=== PATIENT | female | born 1945 | race Hispanic/Latino ===

== ENCOUNTER → 2017-05-31 | Outpatient (CLI) | payer MEDICARE ==
[~2017-05-31] MED LIST: REGADENOSON 0.4 MG/5 ML PF SYG IVP SCH
== END | disposition home or self-care (01) ==
LOC: SHCH 08:36
PROVIDERS: ATTEND Internal Medicine Cardiovascular Disease
DX: E11.40 Type 2 diabetes mellitus with diabetic neuropathy, unspecified (principal); R94.31 Abnormal electrocardiogram [ECG] [EKG]
CPT/HCPCS: 78452; 93017; 96374; A9500 ×2; J2785

== ENCOUNTER 2018-03-09 18:25 | Emergency (ER) | payer MEDICARE ==
[2018-03-09] MEDS ORDERED: BENZOCAINE/LANOLIN/ALOE VERA 60 ML AEROSOL TP ONE (19:13)
[2018-03-09] MEDS ORDERED: OCTYL 2-CYANOACRYLATE 1 EACH TP ONE (19:13)
[2018-03-09] MEDS ORDERED: TETANUS/DIPHTHERIA TOXOID [ADULT] 0.5 ML VIAL IM ONE (19:21)
== END 2018-03-09 21:08 | disposition home or self-care (01) ==
LOC: EDH 18:25
DX: S81.812A Laceration without foreign body, left lower leg, initial encounter (principal); I10 Essential (primary) hypertension; E78.5 Hyperlipidemia, unspecified; E07.9 Disorder of thyroid, unspecified; I25.10 Atherosclerotic heart disease of native coronary artery without angina pectoris; K21.9 Gastro-esophageal reflux disease without esophagitis; Z91.041 Radiographic dye allergy status; Z88.8 Allergy status to other drugs, medicaments and biological substances; Z90.49 Acquired absence of other specified parts of digestive tract; Z72.0 Tobacco use; W22.8XXA Striking against or struck by other objects, initial encounter; Y93.89 Activity, other specified; Y92.098 Other place in other non-institutional residence as the place of occurrence of the external cause; Y99.8 Other external cause status
CPT/HCPCS: 12031; 90471; 90714

== ENCOUNTER 2019-01-24 15:42 | Observation (INO) | payer MEDICARE ==
[~2019-01-24] VITALS: Ht 165.1 cm; Wt 83.6 kg
[2019-01-24] MEDS ORDERED: ASPIRIN 325 MG TABLET ONE (15:52)
[2019-01-24 15:57] LABS: BASOPHILS % (AUTO) 0.7 % (0.0-5.0); EOSINOPHILS % (AUTO) 1.1 % (0.0-8.0); HEMATOCRIT 37.9 % (36-48); LYMPHOCYTES % (AUTO) 24.6 % (21.0-51.0); MEAN CORPUSCULAR HEMOGLOBIN 29.4 pg (27.0-33.0); MEAN CORPUSCULAR HGB CONC 33.7 g/dL (32.0-36.0); MEAN CORPUSCULAR VOLUME 87.1 fL (79-99); MONOCYTES % (AUTO) 5.8 % (3.0-13.0); NEUTROPHILS % (AUTO) 67.8 % (40.0-77.0); PLATELET COUNT (AUTO) 210 K/uL (130-400); RED BLOOD CELL COUNT(AUTO) 4.36 MIL/uL (4.00-5.50); RED CELL DISTRIBUTION WIDTH 15.8 % (11.0-15.5); WHITE BLOOD COUNT (AUTO) 11.6 K/uL (4.8-10.8)
[2019-01-24 16:06] LABS: CREATININE 1.3 mg/dL (0.5-1.5); POTASSIUM 3.7 mmol/L (3.5-5.1)
[2019-01-24 16:09] LABS: INR 0.89 (0.85-1.15); PARTIAL THROMBOPLASTIN TIME 34.1 SEC (26.3-35.5); PROTHROMBIN TIME 9.4 SEC (9.6-11.6)
[2019-01-24 16:16] LABS: ALBUMIN 3.7 g/dL (3.5-5.0); BILIRUBIN,TOTAL 0.8 mg/dL (0.2-1.0); TOTAL PROTEIN, SERUM 6.9 g/dL (6.0-8.3)
[2019-01-24] MEDS ORDERED: NITROGLYCERIN 1GM/1 INCH PACKET TD ONE (16:19)
[2019-01-24] MEDS ORDERED: ENOXAPARIN SODIUM 40 MG/0.4 ML SYRINGE SQ SCH (17:15)
[2019-01-24] MEDS ORDERED: PHARMACY COMMUNICATION MISC SCH (17:15)
--- NOTE | 2019-01-24 18:00 | NUR ---
Patient arrived to room from ED. Patient alert and oriented x3. IV patent to RAC. History obtained from patient/son. Medications reconciled. Bed placed to lowest position. Call light placed within reach. Patient instructed to call nurse if getting up. Patient in no distress. Denies chest pain or SOB at this time.
[2019-01-24 18:06] VITALS: BP 136/78
[2019-01-24] MEDS ORDERED: LOSA1TAB54 PO (18:25)
[2019-01-24] MEDS ORDERED: ROSU20TA31 PO (18:25)
[2019-01-24] MEDS ORDERED: OMEP40CA37 PO (18:30)
[2019-01-24] MEDS ORDERED: IBUP-2071 PO (18:30)
[2019-01-24] MEDS ORDERED: GLIP1TAB6 PO (18:30)
[2019-01-24] MEDS ORDERED: LEVO75TA10 PO (18:30)
[2019-01-24] MEDS ORDERED: CLON1TAB12 PO (18:30)
[2019-01-24] MEDS ORDERED: LEVA0.3129 IH (18:33)
[2019-01-24 18:38] LABS: THYROID STIMULATING HORMONE 14.46 uIU/mL (0.36-3.74)
[2019-01-24 19:00] VITALS: BP 128/69
[2019-01-24] MEDS ORDERED: PREDNISONE 20 MG TABLET PO SCH (19:09)
[2019-01-24] MEDS ORDERED: DIPHENHYDRAMINE HCL 25 MG CAPSULE PO SCH (19:10)
[2019-01-24] MEDS ORDERED: FAMOTIDINE/PF 20 MG/2 ML VIAL IV SCH (19:11)
--- NOTE | 2019-01-24 21:00 | NUR ---
INITIATED IV FLUIDS OF NORMAL SALINE AT 50CC/HR ORDERED. INFORMED PT ABOUT NOTHING BY MOUTH AFTER MIDNIGHT THERE IS A CARDIAC CATH ORDERED FOR TOMORROW. VERBALIZED UNDERSTANDING. STATES SHE HAS HAD IT DONE IN THE PAST. PENDING INFORMED CONSENT FOR THE MORNING.
[2019-01-24] MEDS: NITROGLYCERIN 1GM/1 INCH PACKET TD SCH (21:22)
[2019-01-24] MEDS: SODIUM CHLORIDE 0.9% 1000ML 1,000 ML IV SCH (21:22)
[2019-01-24 23:00] VITALS: BP 129/59
[2019-01-25 00:17] LABS: APPEARANCE,URINE Clear (CLEAR); BILIRUBIN,URINE Negative (NEGATIVE); COLOR,URINE Yellow (YELLOW); GLUCOSE, URINE (UA) Negative (NEGATIVE); KETONES,URINE Negative (NEGATIVE); LEUKOCYTE ESTERASE ,URINE Negative (NEGATIVE); NITRATE,URINE Negative (NEGATIVE); OCCULT BLOOD,URINE Negative (NEGATIVE); PROTEIN,URINE Negative (NEGATIVE); UROBILINOGEN,URINE 0.2 mg/dL (0.2-1.0)
[2019-01-25 03:00] VITALS: BP 130/72
[2019-01-25 04:08] LABS: BASOPHILS % (AUTO) 0.9 % (0.0-5.0); EOSINOPHILS % (AUTO) 2.3 % (0.0-8.0); HEMATOCRIT 39.9 % (36-48); LYMPHOCYTES % (AUTO) 36.7 % (21.0-51.0); MEAN CORPUSCULAR HEMOGLOBIN 29.1 pg (27.0-33.0); MEAN CORPUSCULAR HGB CONC 33.5 g/dL (32.0-36.0); MEAN CORPUSCULAR VOLUME 87.1 fL (79-99); NEUTROPHILS % (AUTO) 54.1 % (40.0-77.0); NUCLEATED RED BLOOD CELLS 0.1 % (0.0-0.19); PLATELET COUNT (AUTO) 216 K/uL (130-400); RED BLOOD CELL COUNT(AUTO) 4.58 MIL/uL (4.00-5.50); RED CELL DISTRIBUTION WIDTH 16.1 % (11.0-15.5); WHITE BLOOD COUNT (AUTO) 8.4 K/uL (4.8-10.8)
[2019-01-25 04:19] LABS: CREATININE 1.1 mg/dL (0.5-1.5)
[2019-01-25 04:24] LABS: INR 0.9 (0.85-1.15); PROTHROMBIN TIME 9.5 SEC (9.6-11.6)
[2019-01-25] MEDS: NITROGLYCERIN 1GM/1 INCH PACKET TD SCH ×3 (04:45→18:04)
[2019-01-25] MEDS ORDERED: DiphenhydrAMINE HCL 50 MG/ML VIAL IV SCH (06:00)
[2019-01-25] MEDS ORDERED: FAMOTIDINE/PF 20 MG/2 ML VIAL IV SCH (06:00)
[2019-01-25] MEDS ORDERED: PREDNISONE 20 MG TABLET PO SCH (06:00)
[2019-01-25 07:43] VITALS: BP 134/72
[2019-01-25] MEDS ORDERED: FAMOTIDINE 20MG TAB 20 MG TAB PO SCH (10:00)
[2019-01-25] MEDS: PREDNISONE 20 MG TABLET PO SCH ×2 (11:02→20:48)
[2019-01-25] MEDS: DiphenhydrAMINE HCL 50 MG/ML VIAL IV SCH ×3 (11:02→22:31)
[2019-01-25] MEDS: ASPIRIN 325 MG TABLET PO SCH (11:08)
[2019-01-25] MEDS ORDERED: ALBUTEROL SULFATE 0.083% 2.5 MG/3 ML INH IH PRN (11:15)
[2019-01-25 11:31] VITALS: BP 151/78
[2019-01-25] MEDS: ACETAMINOPHEN 325 MG TAB PO PRN ×2 (12:40→18:03)
[2019-01-25 15:28] VITALS: BP 137/64
[2019-01-25] MEDS ORDERED: TRAMADOL HCL 50 MG TABLET PO SCH (17:00)
--- NOTE | 2019-01-25 17:40 | NUR ---
DC PLAN VISITED WITH PATIENT. PATIENT LIVES WITH DAUGHTER. SEMI INDEPENDENT ABLE TO PERFORM SOME ADL'S. PATIENT HAS PROVIDER 32 HRS. WALKER AND WHEEL CHAIR, CANE. FEELS SAFE TO RETURN HOME. Addendum: 01/25/19 at 1741 by VAMSI FRANCOIS RN CM Amended: Links added.
[2019-01-25] MEDS: SODIUM CHLORIDE 0.9% 1000ML 1,000 ML IV SCH (18:05)
--- NOTE | 2019-01-25 19:10 | NUR ---
Received report ,pt. is for left heart cath tomorrow and to be kept NPO post midnight.Pt and daughter to bedside and both are aware about NPO status for pt after midnight.
[2019-01-25 19:41] VITALS: BP 142/68
[2019-01-25] MEDS ORDERED: CRESTOR 20MG PO SCH (21:00)
[2019-01-26] VITALS (11 sets, daily range): BP systolic 107–147; BP diastolic 53–70
--- NOTE | 2019-01-26 | NUR ---
Pt. kept NPO at this time.
[2019-01-26] MEDS: NITROGLYCERIN 1GM/1 INCH PACKET TD SCH ×2 (02:28→10:37)
[2019-01-26 04:23] LABS: BASOPHILS % (AUTO) 0.3 % (0.0-5.0); HEMATOCRIT 35.1 % (36-48); LYMPHOCYTES % (AUTO) 17.2 % (21.0-51.0); MEAN CORPUSCULAR HEMOGLOBIN 29.4 pg (27.0-33.0); MEAN CORPUSCULAR HGB CONC 33.9 g/dL (32.0-36.0); MEAN CORPUSCULAR VOLUME 86.7 fL (79-99); NEUTROPHILS % (AUTO) 80.5 % (40.0-77.0); PLATELET COUNT (AUTO) 209 K/uL (130-400); RED BLOOD CELL COUNT(AUTO) 4.05 MIL/uL (4.00-5.50); RED CELL DISTRIBUTION WIDTH 16.2 % (11.0-15.5); WHITE BLOOD COUNT (AUTO) 7.8 K/uL (4.8-10.8)
[2019-01-26 04:28] LABS: CREATININE 1.2 mg/dL (0.5-1.5); POTASSIUM 4.2 mmol/L (3.5-5.1)
[2019-01-26] MEDS: DiphenhydrAMINE HCL 50 MG/ML VIAL IV SCH ×2 (06:23→14:00)
[2019-01-26] MEDS ORDERED: HYDROCORTISONE SOD SUCCINATE 100 MG/2 ML VIAL IV SCH (07:30)
[2019-01-26] MEDS ORDERED: LEVOTHYROXINE 75 MCG TABLET PO SCH (07:30)
[2019-01-26] MEDS: PREDNISONE 20 MG TABLET PO SCH (07:50)
[2019-01-26] MEDS: ASPIRIN 325 MG TABLET PO SCH (07:51)
--- NOTE | 2019-01-26 07:54 | NUR ---
PT CAREER SERVICES MANAGER TO SALES PERSON FOR [facility] WITH DR MENDOZA. NPO. GIVEN AM MEDS.
[2019-01-26] MEDS ORDERED: NITROGLYCERIN 5 MG/ML 10 ML VIAL IV ONE (08:28)
[2019-01-26] MEDS ORDERED: BIVALIRUDIN 250 MG/VIAL IV ONE (08:28)
[2019-01-26] MEDS ORDERED: LIDOCAINE HCL 1% 20 ML VIAL ONE (08:28)
[2019-01-26] MEDS ORDERED: IOHEXOL-350 50ML VIAL IV ONE (08:29)
[2019-01-26] MEDS ORDERED: IOHEXOL 350 MG/ML 100ML INFUS..BTL IV ONE (08:29)
[2019-01-26] MEDS ORDERED: MIDAZOLAM HCL 1 MG/ML 2ML VIAL ONE (08:29)
--- NOTE | 2019-01-26 08:35 | NUR ---
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
[2019-01-26] MEDS ORDERED: LOSARTAN/HYDROCHLOROTHIAZIDE 50-12.5MG TABLET PO SCH (09:00)
[2019-01-26] MEDS ORDERED: PANTOPRAZOLE SODIUM 40 MG TABLET.DR PO SCH (09:00)
[2019-01-26] MEDS ORDERED: ATORVASTATIN CALCIUM 40 MG TABLET PO SCH (09:00)
[2019-01-26] MEDS ORDERED: SODIUM CHLORIDE 0.9% 1000ML 1,000 ML IV SCH (09:45)
[2019-01-26 10:11] LABS: CHOLESTEROL 112 mg/dL (<200); HDL CHOLESTEROL 47 mg/dL (35-85); LDL DIRECT 54 mg/dL (0-99); TRIGLYCERIDES 55 mg/dL (30-200)
--- NOTE | 2019-01-26 10:30 | NUR ---
BACK FROM CASH APPLICATION REPRESENTATIVE. NO HEMATOMA RT GROIN
[2019-01-26] MEDS: SODIUM CHLORIDE 0.9% 1000ML 1,000 ML IV SCH (10:37)
--- NOTE | 2019-01-26 11:53 | NUR ---
DR MENDOZA GIVEN LIPID PANEL RESULTS- NO NEW ORDERS
[2019-01-26] MEDS ORDERED: ASPI-1005 PO (14:15)
[2019-01-26] MEDS ORDERED: INSULIN HUMULIN R 100 UNIT/ML 3ML SQ SCH (16:30)
[2019-01-26] MEDS ORDERED: INSULIN HUMULIN R 100 UNIT/ML 3ML ONE (16:37)
--- NOTE | 2019-01-26 17:37 | NUR ---
DISCHARGED HOME WITH DAUGHTERS. PRINTED AND VERBAL DISCHARGE INSTRUCTIONS GIVEN , PT/FAMILY VERBALIZE UNDERSTANDING. SMOKING CESSATION RE ENFORCED. PT NOT COMPLIANT . TO CAR VIA WHEELCHAIR.
== END 2019-01-26 18:15 | disposition home or self-care (01) ==
LOC: EDH 15:42 → EDHIP 16:50 → INTOOBSV 16:50 → 2DH 18:01
PROVIDERS: ADMIT Internal Medicine; ATTEND Internal Medicine
DX: I25.110 Atherosclerotic heart disease of native coronary artery with unstable angina pectoris (principal); N17.9 Acute kidney failure, unspecified; E03.9 Hypothyroidism, unspecified; I10 Essential (primary) hypertension; E11.65 Type 2 diabetes mellitus with hyperglycemia; R42 Dizziness and giddiness; F17.210 Nicotine dependence, cigarettes, uncomplicated; E78.5 Hyperlipidemia, unspecified; K21.9 Gastro-esophageal reflux disease without esophagitis; Z86.73 Personal history of transient ischemic attack (TIA), and cerebral infarction without residual deficits; Z90.49 Acquired absence of other specified parts of digestive tract; Z91.041 Radiographic dye allergy status; Z79.899 Other long term (current) drug therapy; Z82.49 Family history of ischemic heart disease and other diseases of the circulatory system; Z83.3 Family history of diabetes mellitus
CPT/HCPCS: 36415 ×3; 71045; 80048 ×2; 80053; 80061; 81003; 82550; 82948 ×6; 83874; 84439; 84443; 84484 ×3; 85025 ×3; 85610 ×2; 85730 ×2; 87088; 93005; 93458; 94664; 96361; 96372; 96374; 96375; 96376 ×2; 99284; C1760; C1894; G0378 ×49; J1200 ×5; J1644; J1720; J1815; J2250; J3490; J7030 ×3; Q9965; Q9967 ×2; 99156; 99157; J0583

== ENCOUNTER 2022-04-25 10:28 | Emergency (ER) | payer MEDICARE ==
[~2022-04-25] VITALS: Ht 167.6 cm; Wt 81.6 kg
[~2022-04-25 10:28] MED LIST changes: +ASPI-1005 PO; +GLIP1TAB6 PO; +IBUP-2071 PO; +LEVA0.3129 IH; +LEVO75TA10 PO; +LOSA1TAB54 PO; +OMEP40CA21 PO; -REGADENOSON 0.4 MG/5 ML PF SYG IVP SCH; +ROSU20TA31 PO
[2022-04-25] MEDS ORDERED: IBUPROFEN 600 MG TABLET PO ONE (11:00)
[2022-04-25] MEDS ORDERED: DIPH,PERTUSS(ACELL),TET VAC/PF 0.5 ML VIAL IM ONE (11:00)
[2022-04-25 12:17] VITALS: BP 136/80
== END 2022-04-25 12:50 | disposition home or self-care (01) ==
LOC: EDH 10:28
DX: S81.811A Laceration without foreign body, right lower leg, initial encounter (principal); S21.111A Laceration without foreign body of right front wall of thorax without penetration into thoracic cavity, initial encounter; E11.9 Type 2 diabetes mellitus without complications; I10 Essential (primary) hypertension; Z86.73 Personal history of transient ischemic attack (TIA), and cerebral infarction without residual deficits; Z90.49 Acquired absence of other specified parts of digestive tract; Z79.84 Long term (current) use of oral hypoglycemic drugs; Z79.899 Other long term (current) drug therapy; Z79.82 Long term (current) use of aspirin; Z88.5 Allergy status to narcotic agent; Z88.1 Allergy status to other antibiotic agents; Z88.6 Allergy status to analgesic agent; Z88.8 Allergy status to other drugs, medicaments and biological substances; W18.39XA Other fall on same level, initial encounter; Y93.89 Activity, other specified; Y92.89 Other specified places as the place of occurrence of the external cause; Y99.8 Other external cause status
CPT/HCPCS: 71101; 72170; 73562; 73600; 73620; 90471; 90715; 93005

== ENCOUNTER → 2023-04-07 | Outpatient (CLI) | payer OTHER, MEDICARE ==
[~2023-04-07] MED LIST changes: -ROSU20TA31 PO; +ROSU20TA73 PO
[2023-04-07 12:33] LABS: ALBUMIN 3.6 g/dL (3.5-5.0); BILIRUBIN,TOTAL 0.8 mg/dL (0.2-1.0); POTASSIUM 4.4 mmol/L (3.5-5.1); TOTAL PROTEIN, SERUM 6.9 g/dL (6.0-8.3)
== END | disposition home or self-care (01) ==
LOC: LAB 08:51
PROVIDERS: ATTEND Internal Medicine Cardiovascular Disease
DX: I10 Essential (primary) hypertension (principal); E78.5 Hyperlipidemia, unspecified
CPT/HCPCS: 36415; 80053; 80061

== ENCOUNTER 2024-03-11 09:06 | Emergency (ER) | payer OTHER, MEDICARE ==
[~2024-03-11] VITALS: Ht 165.1 cm; Wt 81.2 kg
[2024-03-11] MEDS ORDERED: SEMA3TAB4 PO (09:20)
[2024-03-11] MEDS ORDERED: IBUP-2070 PO (09:20)
[2024-03-11] MEDS ORDERED: PANT40TA54 PO (09:20)
[2024-03-11] MEDS ORDERED: AMLO-257 PO (09:20)
[2024-03-11] MEDS ORDERED: LOSA100T59 PO (09:20)
[2024-03-11] MEDS ORDERED: CLON0.5T4 PO (09:20)
[2024-03-11 09:46] VITALS: BP 190/72; PULSE 52; RESP 18; TEMP 98.3; O2SAT 98
[2024-03-11 10:04] LABS: APPEARANCE,URINE CLEAR (CLEAR); BILIRUBIN,URINE NEGATIVE (NEGATIVE); COLOR,URINE COLORLESS (YELLOW); GLUCOSE, URINE (UA) 30 mg/dL (NEGATIVE); KETONES,URINE NEGATIVE (NEGATIVE); LEUKOCYTE ESTERASE ,URINE NEGATIVE Leu/uL (NEGATIVE); NITRATE,URINE NEGATIVE (NEGATIVE); OCCULT BLOOD,URINE NEGATIVE (NEGATIVE); PH,URINE 6.5 (5.0-8.0); PROTEIN,URINE 70 mg/dL (NEGATIVE); UROBILINOGEN,URINE 0.2 mg/dL (0.2-1.0)
[2024-03-11 10:20] LABS: SQUAMOUS EPITHELIAL CELL,UR RARE /HPF (0-2)
[2024-03-11 11:00] LABS: CREATININE 1.1 mg/dL (0.5-1.0); POTASSIUM 3.8 mmol/L (3.5-5.1)
[2024-03-11 11:03] LABS: INR 0.94 (0.85-1.15); PROTHROMBIN TIME 10.2 SEC (9.6-11.6)
[2024-03-11 11:05] LABS: PARTIAL THROMBOPLASTIN TIME 26.7 SEC (26.3-35.5)
[2024-03-11 11:26] LABS: BASOPHILS # (AUTO) 0.03 K/uL (0.00-0.20); BASOPHILS % (AUTO) 0.3 % (0.0-5.0); EOSINOPHILS # (AUTO) 0.03 K/uL (0.00-0.70); EOSINOPHILS % (AUTO) 0.3 % (0.0-8.0); HEMATOCRIT 41.4 % (36-48); IMMATURE GRANULOCYTE ABSOLUTE 0.06 K/uL (0-1); LYMPHOCYTES # (AUTO) 1.5 K/uL (1.0-4.8); LYMPHOCYTES % (AUTO) 13.6 % (21.0-51.0); MEAN CORPUSCULAR HEMOGLOBIN 29.2 pg (27.0-33.0); MEAN CORPUSCULAR HGB CONC 33.3 g/dL (32.0-36.0); MEAN CORPUSCULAR VOLUME 87.7 fL (79-99); MONOCYTES # (AUTO) 0.7 K/uL (0.1-1.0); MONOCYTES % (AUTO) 6.1 % (3.0-13.0); NEUTROPHILS # (AUTO) 8.8 K/uL (1.8-7.7); NEUTROPHILS % (AUTO) 79.2 % (40.0-77.0); PLATELET COUNT (AUTO) 205 K/uL (130-400); RED BLOOD CELL COUNT(AUTO) 4.72 MIL/uL (4.00-5.50); RED CELL DISTRIBUTION WIDTH 16.2 % (11.0-15.5); WHITE BLOOD COUNT (AUTO) 11.1 K/uL (4.8-10.8)
[2024-03-11] MEDS: ibuPROFEN 800 MG TAB PO ONE (11:32)
== END 2024-03-11 14:40 | disposition left against medical advice (07) ==
LOC: EDH 09:06
DX: S81.811A Laceration without foreign body, right lower leg, initial encounter (principal); S81.812A Laceration without foreign body, left lower leg, initial encounter; E03.9 Hypothyroidism, unspecified; E11.9 Type 2 diabetes mellitus without complications; E78.00 Pure hypercholesterolemia, unspecified; F41.9 Anxiety disorder, unspecified; I10 Essential (primary) hypertension; M47.816 Spondylosis without myelopathy or radiculopathy, lumbar region; Z79.82 Long term (current) use of aspirin; Z79.84 Long term (current) use of oral hypoglycemic drugs; Z79.899 Other long term (current) drug therapy; Z88.5 Allergy status to narcotic agent; Z88.6 Allergy status to analgesic agent; Z88.8 Allergy status to other drugs, medicaments and biological substances; Z90.49 Acquired absence of other specified parts of digestive tract; Z91.041 Radiographic dye allergy status; Z95.5 Presence of coronary angioplasty implant and graft; Z98.890 Other specified postprocedural states; W18.39XA Other fall on same level, initial encounter; Y93.89 Activity, other specified; Y92.89 Other specified places as the place of occurrence of the external cause; Y99.8 Other external cause status
CPT/HCPCS: 36415; 70450; 71045; 72110; 72125; 73523; 80048; 81001; 82550; 84484; 85025; 85610; 85730; 93005

== ENCOUNTER 2025-01-11 09:02 | Emergency (ER) | payer MEDICARE, MEDICAID ==
[~2025-01-11] VITALS: Ht 167.6 cm; Wt 76.2 kg
[~2025-01-11 09:02] MED LIST changes: +AMLO-257 PO; +CLON0.5T4 PO; +IBUP-2070 PO; +LOSA100T59 PO; +PANT40TA54 PO; -ROSU20TA73 PO; +ROSU20TA98 PO; +SEMA3TAB4 PO
--- NOTE | 2025-01-11 09:15 | ERN ---
General Chief Complaint: Mechanical Fall Stated Complaint: KNEE, HEAD, HIP PAIN Time Seen by MD: 09:03 Source: patient History of Present Illness Initial Comments This is a an 79-year-old female coming in complaining of a fall. Per family member patient fell down earlier today. She does has a history of lower extremity weakness and falls frequently. Patient states that while attempting to walk restroom fell down hit herself in the back of the head and lost consciousness. She is also complaining of lower extremity pain secondary to the fall abrasions on bilateral knees. Allergies: Coded Allergies: codeine (Unverified Allergy, Severe, SWOLLEN TONGUE, 01/25/19) canagliflozin (Unverified Allergy, Intermediate, SWOLLEN TONGUE, 01/25/19) naproxen (Unverified Allergy, Intermediate, SWELLING, 01/25/19) tramadol (Unverified Allergy, Intermediate, SWOLLEN TONGUE, 01/25/19) Iodine and Iodide Containing Produc (Unverified Allergy, Unknown, 05/28/17) Home Meds Active Scripts Aspirin (ASPIRIN 81MG CHEW TAB) 81 Mg Tab.chew, 81 MG PO DAILY for 30 Days, #30 TAB.CHEW Prov:SHAWN DOLL MD 01/26/19 Reported Medications Clonazepam (Clonazepam) 0.5 Mg Tablet, 0.5 MG PO BID PRN for ANXIETY/AGITATION, TAB 03/11/24 Losartan Potassium (Losartan Potassium) 100 Mg Tablet, 100 MG PO DAILY, TAB 03/11/24 Pantoprazole Sodium (Pantoprazole Sodium) 40 Mg Tablet.dr, 40 MG PO DAILY, TAB 03/11/24 Amlodipine Besylate (Amlodipine Besylate) 5 Mg Tablet, 5 MG PO AM, TAB 03/11/24 Semaglutide (Rybelsus) 3 Mg Tablet, 3 MG PO AM, TAB 03/11/24 Ibuprofen (Ibuprofen) 600 Mg Tablet, 600 MG PO TIDP PRN for PAIN, TAB 03/11/24 Levalbuterol HCl (Levalbuterol HCl) 0.31 Mg/3 Ml Vial.neb, 45 MCG IH Q6HPRN PRN for SHORTNESS OF BREATH, INH 01/24/19 Omeprazole (Omeprazole) 40 Mg Capsule.dr, 40 MG PO DAILY, CAP 01/24/19 Levothyroxine Sodium (Levothyroxine Sodium) 75 Mcg Tablet, 75 MCG PO ACBKFST, TAB 01/24/19 Ibuprofen (Ibuprofen) 800 Mg Tablet, 800 MG PO Q8H PRN for PAIN LEVEL 1 TO 5, TAB 01/24/19 Glipizide/Metformin HCl (Glipizide-Metformin 5-500 mg) 1 Each Tablet, 1 EACH PO BID, TAB 01/24/19 Losartan/Hydrochlorothiazide (Losartan-Hctz 100-25 mg Tab) 1 Each Tablet, 1 EACH PO DAILY, TAB 01/24/19 Rosuvastatin Calcium (Rosuvastatin Calcium) 20 Mg Tablet, 20 MG PO DAILY, TAB 01/24/19 Past Medical History Past Medical History: Anxiety, Diabetes-Type II, High Cholesterol, Heart Disease, Hypertension, Hypothyroid Medical History Other: THYROID Past Surgical History: Cholecystectomy, Other Surgical History Other: CARDIAC STENT Social History Social History: Negative, Lives with family Female( History) History: Not Applicable ROS Dictation CONSTITUTIONAL: No chills, no fever, no weakness, no diaphoresis, no malaise. HEAD/FACE: No signs of trauma. EENT: No eye pain, no blurred vision, no tearing, no double vision, no ear pain, no ear discharge, no nose pain, no nasal congestion, no throat pain, no throat swelling, no mouth pain. RESPIRATORY: No cough, no orthopnea, no SOB, no stridor, no wheezing. CARDIOVASCULAR: No chest pain, no edema, no palpitations, no syncope. GASTROINTESTINAL/ABDOMINAL: No abdominal pain, no constipation, no diarrhea, no nausea, no vomiting. GENITOURINARY: No abnormal discharge, no dysuria, no frequent urination, no hematuria. No complaints of pain in the genitals. MUSCULOSKELETAL: No back pain, no gout, no joint pain, no joint swelling, no muscle pain, no muscle stiffness, no neck pain. INTEGUMENTARY: No change in color, no change in hair/nails, no dryness, lesion, no lumps, no rash. NEUROLOGICAL/PSYCH: No anxiety, not depressed, no emotional problem, no headache, no numbness, no pre-existing deficit, no history of seizures, no tremors, no weakness. HEMATOLOGIC/LYMPHATIC: Not anemic, no history of blood clots, no apparent bleeding, no bruising, glands not swollen. All Systems Negative, Except as Noted. Physical Exam Physical Exam Dictation VITAL SIGNS: Reviewed. GENERAL APPEARANCE: Alert, oriented x3, no acute distress, obese. HEAD AND FACE: Non-traumatic. EYES: PERRL, pink conjunctivas, eyelid no trauma, anterior chamber clear. EARS: Pinnas intact and no signs of trauma or erythema. Ear canals clear and no discharge. TMs no erythema. NOSE: No discharge, no bleeding. OROPHARYNX: Mouth normal, teeth no caries, tongue pink. Pharynx clear, no erythema. Tonsils no exudates, no abscesses noted. Mucous membrane moist. NECK: Supple, non-tender, no thyromegaly, no masses, no JVD, no bruits. BREAST: Deferred. CHEST: No tenderness, no crepitus, no paradoxical movement, no retractions. LUNGS: Clear, well-ventilated, symmetric, no rales, no wheezing, no rhonchi, no stridor, good breath sounds bilaterally. HEART: Regular rate, regular rhythm, no murmur, no gallops. VASCULAR: No peripheral edema. ABDOMEN: Soft, positive bowel sounds, nondistended, no guarding, nontender, no rebound, no masses no hepatomegaly, no splenomegaly, no Cisneros's sign, no hernias. RECTAL: Deferred. GENITAL: Deferred. NEUROLOGICAL: Normal speech, gross motor function intact, gross sensory function intact. MUSCULOSKELETAL: Neck nontender, full range of motion, back nontender, full range of motion. EXTREMITIES: Nontender, full range of motion. Bilateral lower extremity pain on palpation SKIN: Color pink, dry, no turgor, no rash, no lacerations, abrasions, no contusions. LYMPHATICS: Deferred. Results Laboratory and Microbiology Lab and Micro Result Laboratory Tests Test 01/11/25 09:18 01/11/25 13:30 White Blood Count 8.0 K/uL (4.8-10.8) Red Blood Count 5.08 MIL/uL (4.00-5.50) Hemoglobin 14.8 g/dL (12.0-16.0) Hematocrit 43.9 % (36-48) Mean Corpuscular Volume 86.4 fL (79-99) Mean Corpuscular Hemoglobin 29.1 pg (27.0-33.0) Mean Corpuscular Hemoglobin Concent 33.7 g/dL (32.0-36.0) Red Cell Distribution Width 15.3 % (11.0-15.5) Platelet Count 272 K/uL (130-400) Mean Platelet Volume 9.6 fL (7.5-10.5) Immature Granulocyte % (Auto) 0.1 % (0-1) Neutrophils (%) (Auto) 63.5 % (40.0-77.0) Lymphocytes (%) (Auto) 29.1 % (21.0-51.0) Monocytes (%) (Auto) 5.7 % (3.0-13.0) Eosinophils (%) (Auto) 1.1 % (0.0-8.0) Basophils (%) (Auto) 0.5 % (0.0-5.0) Neutrophils # (Auto) 5.1 K/uL (1.8-7.7) Lymphocytes # (Auto) 2.3 K/uL (1.0-4.8) Monocytes # (Auto) 0.5 K/uL (0.1-1.0) Eosinophils # (Auto) 0.09 K/uL (0.00-0.70) Basophils # (Auto) 0.04 K/uL (0.00-0.20) Absolute Immature Granulocyte (auto 0.01 K/uL (0-1) Nucleated Red Blood Cells 0.0 % (0.0-0.19) Sodium Level 138 mmol/L (136-145) Potassium Level 4.1 mmol/L (3.5-5.1) Chloride Level 103 mmol/L (101-111) Carbon Dioxide Level 28 mmol/L (21-32) Blood Urea Nitrogen 20 mg/dL (7-18) H Creatinine 0.9 mg/dL (0.5-1.0) Glomerular Filtration Rate Calc 65 mL/min (>90) Random Glucose 164 mg/dL (70-105) H Total Calcium 8.5 mg/dL (8.5-10.1) Urine Color LIGHT-YELLOW (YELLOW) Urine Appearance CLEAR (CLEAR) Urine pH 7.0 (5.0-8.0) Urine Specific [place] 1.010 (1.001-1.031) Urine Protein 200 mg/dL (NEGATIVE) H Urine Glucose (UA) NEGATIVE mg/dL (NEGATIVE) Urine Ketones NEGATIVE mg/dL (NEGATIVE) Urine Occult Blood NEGATIVE (NEGATIVE) Urine Nitrate NEGATIVE (NEGATIVE) Urine Bilirubin NEGATIVE mg/dL (NEGATIVE) Urine Urobilinogen 0.2 mg/dL (0.2-1.0) Urine Leukocyte Esterase NEGATIVE Ghassan/uL Urine RBC 0-1 /HPF (0-1) Urine WBC 2-5 /HPF (0-1) H Urine Squamous Epithelial Cells RARE /HPF (0-2) Urine Non-Squamous Epithelial Cells <1 /HPF (0-2) Urine Bacteria None /HPF (None Seen) Labs Reviewed?: Yes EKG/XRAY/US/CT/MRI X-RAY Comment [address] [place], [place] [id number] IMAGING REPORT Signed PATIENT: BIANCA GROSS MR#: [id number] : 1945 SEX: F AGE: 79 LOCATION: [facility] ORDER 09 STATUS: [facility] REPORT#: [id number] SERVICE 09 REASON: fall ORDERING PHYSICIAN: MARC EVANS MD PROCEDURE: LUMB 2 3VW - LUMBAR SPINE 2-3VWS EXAM: CR Lumbar Spine, 3 View. CLINICAL HISTORY: fall COMPARISON: None provided. FINDINGS: There is levoscoliosis and straightening of the lumbar spine that may reflect paraspinal muscle spasm. There is severe chronic compression deformity of L1. No significant retropulsed component identified. There is mild grade 1 posterior listhesis of L1 with respect to L2, and also of L2 with respect to L3 and L3 with respect to L4. There is facet joint osteoarthritis at L4-L5 and L5-S1. There is multilevel degenerative disc disease, severe at L2-L3 and mild to moderate at the remaining lumbar levels. Remaining vertebral body heights appear within normal limits. Atherosclerotic vascular calcifications are noted. IMPRESSION: 1. Severe chronic L1 compression deformity. 2. Multilevel grade 1 posterior listhesis involving L1-L4. 3. Severe degenerative disc disease at L2-L3, with mild to moderate changes at remaining lumbar levels. Please note that low bone density may limit evaluation for nondisplaced fractures. If clinical concern persists recommend CT or MR imaging for further evaluation. /[place] DICTATED BY: SELWYN SOMMERS Jr., MD DATE: 01/11/25 1156 ELECTRONICALLY SIGNED BY: SELWYN SOMMERS Jr., MD DATE: 01/11/25 1156 IMAGING REPORT Signed PATIENT: BIANCA GROSS MR#: [id number] : 1945 SEX: F AGE: 79 LOCATION: EDH ORDER 1124 STATUS: REG ER REPORT#: [id number] SERVICE 112 REASON: RIGHT ANKLE INJURY ORDERING PHYSICIAN: MARC EVANS MD PROCEDURE: [id number] - ANKLE COMP 3VWS RT EXAM: CR right ankle, 3 View. CLINICAL HISTORY: RIGHT ANKLE INJURY COMPARISON: None provided. FINDINGS: BONES: No acute fracture or aggressive appearing osseous lesion. Small plantar calcaneus spur. JOINTS: The joint spaces appear within normal limits. No dislocation. No radiographic evidence of a joint effusion. SOFT TISSUES: The soft tissues are unremarkable. IMPRESSION: No acute osseous abnormality. /[place] DICTATED BY: SELWYN SOMMERS Jr., MD DATE: 01/11/251407 ELECTRONICALLY SIGNED BY: SELWYN SOMMERS Jr., MD DATE: 01/11/251407 CT Scan Comment IMAGING REPORT Signed PATIENT: BIANCA GROSS MR#: [id number] : 1945 SEX: F AGE: 79 LOCATION: ED ORDER 0907 STATUS: [facility] ER REPORT#: [id number] SERVICE 0906 REASON: fall ORDERING PHYSICIAN: MARC EVANS MD PROCEDURE: HEAD WO - CT HEAD/BRAIN W/O CONTRAST EXAM: Non-contrast CT examination of the Brain CLINICAL HISTORY: Fall. TECHNIQUE: Thin collimated axial CT images of the brain were obtained, with sagittal and coronal reformatted images also submitted. CT scan done according to ALARA (As Low as Reasonably Achievable). CONTRAST USED: None. COMPARISON: Prior CT brain dated 03/11/24. FINDINGS: No acute intracranial abnormality is present. No acute cortical infarction, hemorrhage, mass, or mass effect. 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 No hydrocephalus or abnormal extra-axial fluid collections. The posterior fossa is unremarkable. The skull base and calvarium are intact. The included portions of the paranasal sinuses and mastoid air cells are clear. IMPRESSION: No acute intracranial abnormality is present. 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 No significant interval change. /[place] DICTATED BY: SOLOMON LYONS MD DATE: 01/11/251114 ELECTRONICALLY SIGNED BY: SOLOMON LYONS MD DATE: 01/11/251114 MDM MDM: Differential diagnosis: Fall, abrasion, skin tear, Rationale: Tests considered and ordered secondary to shared decision making include: Previous outside records reviewed: Old ER visits. Risk of complication and/or morbidity or mortality of patient management: None Medications-Per medication reconciliation Need for hospitalization: Patient does meet criteria for hospitalization. Need for emergency major/minor surgery: No There are no social concerns with this patient. Prescription drug management Prescriptions will include symptomatic care Patient's prior external medical records from other ER visits were reviewed by me as indicated. Prior testing and results from previous visits were reviewed. Prior tests were taken into account with medical decision making and resource utilization, independent historian/historians were used to obtain complete medical history. I independently interpreted the test that were performed, results were reviewed by me and considered findings on radiology if ordered. Medical management and examination interpretation discussions were had by me with other qualified healthcare professionals as indicated for the patient's care. I DID ADVISE PATIENT DUE TO THE FALL AND HER INITIAL PRESENTATION WHICH CAUSED THE FALL THAT PATIENT NEEDED TO BE ADMITTED BUT PATIENT REFUSED STATES SHE WANTS TO FOLLOW UP WITH A HER PCP. IMAGING STUDIES LABORATORY WORKUP WITHIN NORMAL LIMITS. PATIENT STATES HE FEELS MUCH BETTER AND WISHES TO GO HOME. ED Course Orders Procedure Category Date Status Time Cbc With Differential LAB 01/11/25 Complete 09:06 Basic Metabolic Panel LAB 01/11/25 Complete 09:06 Urinalysis LAB 01/11/25 Complete W/Microscopic 09:06 Knee 3 Vw Bilateral RAD 01/11/25 Taken 09:06 Ct Head/Brain W/O CT 01/11/25 Resulted Contrast 09:06 Lumbar Spine 2-3vws RAD 01/11/25 Resulted 09:06 Tetanus,Diphtheria PHA 01/11/25 Complete Tox [Adult] (Diphther 10:00 Ankle Comp 3vws Rt RAD 01/11/25 Resulted 11:22 Dermabond (Dermabond) PHA 01/11/25 In Process 11:30 Ibuprofen 200 Mg PHA 01/11/25 Logged Tablet (Motrin) 13:30 Pharmacy PHA 01/11/25 In Process Communication 21:00 Acetaminophen 325 Tab PHA 01/11/25 Verified (Tylenol 325mg Tab 14:00 Current Medications Medications (Trade) Dose Ordered Sig/[place]isette Route PRN Reason Start Time Stop Time Status Last Admin Dose Admin Ibuprofen (moTRIN) 400 mg ONCE ONCE PO 01/11/25 13:30 01/11/25 13:31 UNV Octyl Cyanoacrylate (Dermabond) 1 each ONCE TP 01/11/25 11:30 02/10/25 11:29 01/11/25 12:36 Pharmacy Profile Note (Pharmacy Communication) Re: NEW ORDER FOR IBUPRO... BID MISC 01/11/25 21:00 01/18/25 20:59 Tetanus/ Diphtheria Toxoids Adsorbed (DiphthERIA-teTANUS TOXOID [ADULT]/ DECAVAC) 0.5 ml ONCE ONCE IM 01/11/25 10:00 01/11/25 10:01 DC Vital Signs Date Time Temp Pulse Resp B/P (MAP) Pulse Ox O2 Delivery O2 Flow Rate FiO2 01/11/25 09:35 96.3 60 18 152/67 96 Room Air* 0 21 01/11/25 09:03 97.9 67 16 181/122 96 Room Air 0 DX & DISP Disposition: Discharge Departure Impression: Primary Impression: Noninfected skin tear of leg Additional Impression: Fall from ground level Condition: Stable Additional Instructions: FOLLOW-UP WITH PRIMARY CARE PROVIDER IN 1 TO 2 DAYS. TAKE MEDICATIONS DIRECTED HERE IN THE EMERGENCY ROOM. OKAY TO CONTINUE HOME MEDICATIONS UNLESS OTHERWISE DISCUSSED DURING YOUR VISIT IN THE EMERGENCY ROOM TODAY. RETURN TO YOUR NEAREST EMERGENCY ROOM IF SYMPTOMS WORSEN OR IF THERE IS NO IMPROVEMENT. CALL 911 IF YOU NEED IMMEDIATE ASSISTANCE. TAKE TYLENOL [id number] NEEDED AND IF NO CONTRAINDICATIONS ARE PRESENT. INCREASE ORAL HYDRATION. A WOUND CULTURE OR URINE CULTURE WAS ORDERED HERE IN THE EMERGENCY ROOM DEPARTMENT PLEASE FOLLOW-UP WITH PRIMARY CARE PROVIDER AND ADVISE THEM TO GET REPORTS FROM OUR FACILITY. IF YOU HAD ANY SILVER WRAP/SPLINTS THAT WERE APPLIED HERE, PLEASE DO NOT REMOVE THEM UNTIL YOU SEE YOUR PRIMARY CARE OR SPECIALTY. REFERRALS: Referrals: GRACIELA GABRIEL DO (PCP) Time of Disposition: 14:03 MARC EVANS MD Jan 11, 2025 09:15
[2025-01-11 09:26] LABS: IMMATURE GRANULOCYTE ABSOLUTE 0.01 K/uL (0-1); NUCLEATED RED BLOOD CELLS 0.0 % (0.0-0.19); PLATELET COUNT (AUTO) 272 K/uL (130-400); RED BLOOD CELL COUNT(AUTO) 5.08 MIL/uL (4.00-5.50); RED CELL DISTRIBUTION WIDTH 15.3 % (11.0-15.5); WHITE BLOOD COUNT (AUTO) 8.0 K/uL (4.8-10.8)
[2025-01-11 09:34] LABS: CREATININE 0.9 mg/dL (0.5-1.0); GLOMERULAR FILTR. RATE CALC 65.0 mL/min (>90); GLUCOSE,RANDOM 164.0 mg/dL (70-105); SODIUM SERUM 138.0 mmol/L (136-145); UREA NITROGEN, BLOOD 20.0 mg/dL (7-18)
--- NOTE | 2025-01-11 09:34 | NUR ---
PATIENT TO IMAGING
--- NOTE | 2025-01-11 10:00 | NUR ---
PT DECLINED TETANUS SHE HAD IT A YEAR AGO
--- NOTE | 2025-01-11 10:16 | HMCIMG ---
EXAM: Non-contrast CT examination of the Brain CLINICAL HISTORY: Fall. TECHNIQUE: Thin collimated axial CT images of the brain were obtained, with sagittal and coronal reformatted images also submitted. CT scan done according to ALARA (As Low as Reasonably Achievable). CONTRAST USED: None. COMPARISON: Prior CT brain dated 03/11/24. FINDINGS: No acute intracranial abnormality is present. No acute cortical infarction, hemorrhage, mass, or mass effect. 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 No hydrocephalus or abnormal extra-axial fluid collections. The posterior fossa is unremarkable. The skull base and calvarium are intact. The included portions of the paranasal sinuses and mastoid air cells are clear. IMPRESSION: No acute intracranial abnormality is present. 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 No significant interval change. /[place]
--- NOTE | 2025-01-11 10:57 | HMCIMG ---
EXAM: CR Lumbar Spine, 3 View. CLINICAL HISTORY: fall COMPARISON: None provided. FINDINGS: There is levoscoliosis and straightening of the lumbar spine that may reflect paraspinal muscle spasm. There is severe chronic compression deformity of L1. No significant retropulsed component identified. There is mild grade 1 posterior listhesis of L1 with respect to L2, and also of L2 with respect to L3 and L3 with respect to L4. There is facet joint osteoarthritis at L4-L5 and L5-S1. There is multilevel degenerative disc disease, severe at L2-L3 and mild to moderate at the remaining lumbar levels. Remaining vertebral body heights appear within normal limits. Atherosclerotic vascular calcifications are noted. IMPRESSION: 1. Severe chronic L1 compression deformity. 2. Multilevel grade 1 posterior listhesis involving L1-L4. 3. Severe degenerative disc disease at L2-L3, with mild to moderate changes at remaining lumbar levels. Please note that low bone density may limit evaluation for nondisplaced fractures. If clinical concern persists recommend CT or MR imaging for further evaluation. /[place]
[2025-01-11] MEDS: OCTYL 2-CYANOACRYLATE 1 EACH TP SCH (12:36)
--- NOTE | 2025-01-11 13:09 | HMCIMG ---
EXAM: CR right ankle, 3 View. CLINICAL HISTORY: RIGHT ANKLE INJURY COMPARISON: None provided. FINDINGS: BONES: No acute fracture or aggressive appearing osseous lesion. Small plantar calcaneus spur. JOINTS: The joint spaces appear within normal limits. No dislocation. No radiographic evidence of a joint effusion. SOFT TISSUES: The soft tissues are unremarkable. IMPRESSION: No acute osseous abnormality. /[place]
[2025-01-11 13:39] LABS: APPEARANCE,URINE CLEAR (CLEAR); GLUCOSE, URINE (UA) NEGATIVE (NEGATIVE); LEUKOCYTE ESTERASE ,URINE NEGATIVE Leu/uL (NEGATIVE); NITRATE,URINE NEGATIVE (NEGATIVE); OCCULT BLOOD,URINE NEGATIVE (NEGATIVE)
[2025-01-11 13:46] LABS: NON-SQUAMOUS EPITHELIAL CELL <1 /HPF (0-2); SQUAMOUS EPITHELIAL CELL,UR RARE /HPF (0-2)
[2025-01-11 14:25] VITALS: BP 149/66; PULSE 67; RESP 18; TEMP 97; O2SAT 98
--- NOTE | 2025-01-11 14:44 | HMCIMG ---
EXAM: CR bilateral Knees, 3 View. CLINICAL HISTORY: fall COMPARISON: X-ray bilateral knee 03/11/2024 FINDINGS: BONES: No acute fracture or aggressive appearing osseous lesion. JOINTS: Near complete loss of the lateral compartment joint space right knee worsening compared with the prior exam. Marked loss of the lateral compartment of the left knee worsening compared with the prior exam. Small juxta-articular osteophytes bilateral lateral compartments. Marked arterial calcific atherosclerosis bilaterally There is no joint effusion appreciated. . IMPRESSION: 1. No acute osseous injury. 2. 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 3. Marked bilateral arterial calcifications. /[place]
[2025-01-11] MEDS ORDERED: PHARMACY COMMUNICATION MISC SCH (21:00)
== END 2025-01-11 14:53 | disposition home or self-care (01) ==
LOC: EDH 09:02
DX: S81.812A Laceration without foreign body, left lower leg, initial encounter (principal); S81.811A Laceration without foreign body, right lower leg, initial encounter; E03.9 Hypothyroidism, unspecified; E11.9 Type 2 diabetes mellitus without complications; E78.00 Pure hypercholesterolemia, unspecified; F41.9 Anxiety disorder, unspecified; I10 Essential (primary) hypertension; Z79.82 Long term (current) use of aspirin; Z79.84 Long term (current) use of oral hypoglycemic drugs; Z79.899 Other long term (current) drug therapy; Z88.5 Allergy status to narcotic agent; Z88.6 Allergy status to analgesic agent; Z88.8 Allergy status to other drugs, medicaments and biological substances; Z90.49 Acquired absence of other specified parts of digestive tract; Z95.5 Presence of coronary angioplasty implant and graft; W18.39XA Other fall on same level, initial encounter; Y93.89 Activity, other specified; Y92.89 Other specified places as the place of occurrence of the external cause; Y99.8 Other external cause status
CPT/HCPCS: 36415; 70450; 72100; 73610; 80048; 81001; 85025; 90714; 99284

== ENCOUNTER 2025-04-09 15:39 | Observation (INO) | payer MEDICARE, MEDICAID ==
[~2025-04-09] VITALS: Ht 167.6 cm; Wt 76.5 kg
[~2025-04-09 15:39] MED LIST changes: +IBUP-1492 PO; -IBUP-2070 PO
[2025-04-09 17:10] LABS: IMMATURE GRANULOCYTE ABSOLUTE 0.05 K/uL (0-1); NUCLEATED RED BLOOD CELLS 0.0 % (0.0-0.19); PLATELET COUNT (AUTO) 258 K/uL (130-400); RED BLOOD CELL COUNT(AUTO) 4.21 MIL/uL (4.00-5.50); RED CELL DISTRIBUTION WIDTH 15.9 % (11.0-15.5); WHITE BLOOD COUNT (AUTO) 8.3 K/uL (4.8-10.8)
--- NOTE | 2025-04-09 17:15 | ERN ---
General Chief Complaint: Chest Pain Stated Complaint: CHEST PAIN, BACK PAIN Time Seen by MD: 15:49 History of Present Illness Initial Comments 79-year-old female with a past medical history of hypertension, diabetes mellitus, hypothyroidism, arthritis, stroke, gastritis presented with a chief complaint of chest pain radiating to back for 3 days. She also noted her raised blood pressure the highest recorded was 198/96 mm of Hg at her home. She said the chest pain was present while lying on bed and did not change with exertion. She did not complain of shortness of breath, palpitation, nausea, vomiting, abdominal pain, reflux. Allergies: Coded Allergies: codeine (Unverified Allergy, Severe, SWOLLEN TONGUE, 01/25/19) canagliflozin (Unverified Allergy, Intermediate, SWOLLEN TONGUE, 01/25/19) naproxen (Unverified Allergy, Intermediate, SWELLING, 01/25/19) tramadol (Unverified Allergy, Intermediate, SWOLLEN TONGUE, 01/25/19) Iodine and Iodide Containing Produc (Unverified Allergy, Unknown, 05/28/17) Home Meds Active Scripts Aspirin (ASPIRIN 81MG CHEW TAB) 81 Mg Tab.chew, 81 MG PO DAILY for 30 Days, #30 TAB.CHEW Prov:SHAWN DOLL MD 01/26/19 Reported Medications Clonazepam (Clonazepam) 0.5 Mg Tablet, 0.5 MG PO BID PRN for ANXIETY/AGITATION, TAB 03/11/24 Losartan Potassium (Losartan Potassium) 100 Mg Tablet, 100 MG PO DAILY, TAB 03/11/24 Pantoprazole Sodium (Pantoprazole Sodium) 40 Mg Tablet.dr, 40 MG PO DAILY, TAB 03/11/24 Amlodipine Besylate (Amlodipine Besylate) 5 Mg Tablet, 5 MG PO AM, TAB 03/11/24 Semaglutide (Rybelsus) 3 Mg Tablet, 3 MG PO AM, TAB 03/11/24 Ibuprofen (Ibuprofen) 600 Mg Tablet, 600 MG PO TIDP PRN for PAIN, TAB 03/11/24 Levalbuterol HCl (Levalbuterol HCl) 0.31 Mg/3 Ml Vial.neb, 45 MCG IH Q6HPRN PRN for SHORTNESS OF BREATH, INH 01/24/19 Omeprazole (Omeprazole) 40 Mg Capsule.dr, 40 MG PO DAILY, CAP 01/24/19 Levothyroxine Sodium (Levothyroxine Sodium) 75 Mcg Tablet, 75 MCG PO ACBKFST, TAB 01/24/19 Ibuprofen (Ibuprofen) 800 Mg Tablet, 800 MG PO Q8H PRN for PAIN LEVEL 1 TO 5, TAB 01/24/19 Glipizide/Metformin HCl (Glipizide-Metformin 5-500 mg) 1 Each Tablet, 1 EACH PO BID, TAB 01/24/19 Losartan/Hydrochlorothiazide (Losartan-Hctz 100-25 mg Tab) 1 Each Tablet, 1 EACH PO DAILY, TAB 01/24/19 Rosuvastatin Calcium (Rosuvastatin Calcium) 20 Mg Tablet, 20 MG PO DAILY, TAB 01/24/19 Past Medical History Past Medical History: Anxiety, Diabetes-Type II, High Cholesterol, Heart Disease, Hypertension, Hypothyroid Medical History Other: THYROID Past Surgical History: Cholecystectomy, Other Surgical History Other: CARDIAC STENT Social History Social History: Negative, Lives with family Female( History) History: Not Applicable ROS Dictation CONSTITUTIONAL: No chills, no fever, no weakness, no diaphoresis, no malaise. HEAD/FACE: No signs of trauma. EENT: No eye pain, no blurred vision, no tearing, no double vision, no ear pain, no ear discharge, no nose pain, no nasal congestion, no throat pain, no throat swelling, no mouth pain. RESPIRATORY: No cough, no orthopnea, SOB, no stridor, wheezing. CARDIOVASCULAR: Chest pain, no edema, no palpitations, no syncope. GASTROINTESTINAL/ABDOMINAL: No abdominal pain, no constipation, no diarrhea, no nausea, no vomiting. GENITOURINARY: No abnormal discharge, no dysuria, no frequent urination, no hematuria. No complaints of pain in the genitals. MUSCULOSKELETAL: no gout, no joint pain, no joint swelling, no muscle pain, no muscle stiffness, no neck pain. INTEGUMENTARY: She has bruises on her lower limb, no change in hair/nails, no dryness, no lesion, no lumps, no rash. NEUROLOGICAL/PSYCH: No anxiety, not depressed, no emotional problem, no headache, no numbness, no pre-existing deficit, no history of seizures, no tremors, no weakness. HEMATOLOGIC/LYMPHATIC: Not anemic, no history of blood clots, no apparent bleeding, no bruising, glands not swollen. All Systems Negative, Except as Noted. Physical Exam Physical Exam Dictation GENERAL APPEARANCE: Alert, oriented x3, no acute distress, obese. HEAD AND FACE: Non-traumatic. EYES: PERRL, pink conjunctivas, eyelid no trauma, anterior chamber clear. EARS: Pinnas intact and no signs of trauma or erythema. Ear canals clear and no discharge.. NOSE: No discharge, no bleeding. OROPHARYNX: Mouth normal, Pharynx clear, no erythema. Tonsils no exudates, no abscesses noted. Mucous membrane moist. NECK: Supple, non-tender, no thyromegaly, no masses, no JVD, no bruits. BREAST: Deferred. CHEST: No tenderness, no crepitus, no paradoxical movement, no retractions. LUNGS: Clear, well-ventilated, symmetric, no rales, wheezing, no rhonchi, no stridor, good breath sounds bilaterally. HEART: Regular rate, regular rhythm, no murmur, no gallops. VASCULAR: No peripheral edema. ABDOMEN: Soft, positive bowel sounds, nondistended, no guarding, nontender, no rebound, RECTAL: Deferred. GENITAL: Deferred. NEUROLOGICAL: Normal speech, bilateral lower limb weakness more on the left side, gross sensory function intact. MUSCULOSKELETAL: Neck nontender, full range of motion, back nontender, full range of motion. EXTREMITIES: Nontender, full range of motion. SKIN: Bruises on the lower limb LYMPHATICS: Deferred. Results Laboratory and Microbiology Lab and Micro Result Laboratory Tests Test 04/09/25 17:00 White Blood Count 8.3 K/uL (4.8-10.8) Red Blood Count 4.21 MIL/uL (4.00-5.50) Hemoglobin 12.6 g/dL (12.0-16.0) Hematocrit 36.7 % (36-48) Mean Corpuscular Volume 87.2 fL (79-99) Mean Corpuscular Hemoglobin 29.9 pg (27.0-33.0) Mean Corpuscular Hemoglobin Concent 34.3 g/dL (32.0-36.0) Red Cell Distribution Width 15.9 % (11.0-15.5) H Platelet Count 258 K/uL (130-400) Mean Platelet Volume 10.2 fL (7.5-10.5) Immature Granulocyte % (Auto) 0.6 % (0-1) Neutrophils (%) (Auto) 68.6 % (40.0-77.0) Lymphocytes (%) (Auto) 20.6 % (21.0-51.0) L Monocytes (%) (Auto) 7.6 % (3.0-13.0) Eosinophils (%) (Auto) 1.9 % (0.0-8.0) Basophils (%) (Auto) 0.7 % (0.0-5.0) Neutrophils # (Auto) 5.7 K/uL (1.8-7.7) Lymphocytes # (Auto) 1.7 K/uL (1.0-4.8) Monocytes # (Auto) 0.6 K/uL (0.1-1.0) Eosinophils # (Auto) 0.16 K/uL (0.00-0.70) Basophils # (Auto) 0.06 K/uL (0.00-0.20) Absolute Immature Granulocyte (auto 0.05 K/uL (0-1) Nucleated Red Blood Cells 0.0 % (0.0-0.19) D-Dimer Quantitative (PE/DVT) 1905 ng/mL (0-500) *H Sodium Level 135 mmol/L (136-145) L Potassium Level 3.9 mmol/L (3.5-5.1) Chloride Level 102 mmol/L (101-111) Carbon Dioxide Level 23 mmol/L (21-32) Blood Urea Nitrogen 18 mg/dL (7-18) Creatinine 1.0 mg/dL (0.5-1.0) Glomerular Filtration Rate Calc 57 mL/min (>90) Random Glucose 188 mg/dL (70-105) H Hemoglobin A1c 7.6 % (4.0-6.0) H Estimated Average Glucose (eAG) 171 mg/dL (70-126) H Total Calcium 8.1 mg/dL (8.5-10.1) L Total Bilirubin 0.4 mg/dL (0.2-1.0) Aspartate Amino Transf (AST/SGOT) 11 U/L (10-37) Alanine Aminotransferase (ALT/SGPT) 14 U/L (12-78) Alkaline Phosphatase 131 U/L (50-136) Total Creatine Kinase 61 U/L (21-232) Troponin I High Sensitivity 6 ng/L (4-50) Total Protein 5.5 g/dL (6.0-8.3) L Albumin 2.8 g/dL (3.5-5.0) L Triglycerides Level 149 mg/dL (30-200) Cholesterol Level 140 mg/dL (<200) # LDL Cholesterol 73 mg/dL (0-99) HDL Cholesterol 45 mg/dL (35-85) MDM CC: Chest pain radiating to back Historian: Patient Comorbidities: Advanced age, diabetes, hypertension Limitations by social determinants of health: None Differential diagnosis: ACS, pulmonary embolism, aortic dissection and others Vital signs show BP:167/80, otherwise unremarkable vitals The labs remarkable for D-dimer 1908, HbA1c 7.6 Patient has a elevated heart score, at least a four based on age and risk factors. The EKG and troponin are stable, but patient would benefit from a cardiac workup. Patient is allergic to iodine due to which CT angio chest to rule out pulmonary embolism versus aortic dissection was not done. She may need transesophageal echocardiogram to rule out aortic dissection. She also needs V/Q scan to rule out PE and venous Doppler bilateral lower limb to rule out DVT. She is admitted for further evaluation and management. ED Course Orders Procedure Category Date Status Time Cbc With Differential LAB 04/09/25 Complete 16:50 Comprehensive LAB 04/09/25 Complete Metabolic Panel 16:50 Troponin I High LAB 04/09/25 Complete Sensitivity 16:50 12 Lead Ekg Tracing- EKG 04/09/25 Complete Technical 16:50 Chest 1vw RAD 04/09/25 Taken 16:50 Lipid Panel LAB 04/09/25 Complete 16:50 Hemoglobin A1c LAB 04/09/25 Complete 16:50 Creatine Kinase, Total LAB 04/09/25 Complete 16:50 D-Dimer LAB 04/09/25 Complete 17:22 Vital Signs Date Time Temp Pulse Resp B/P (MAP) Pulse Ox O2 Delivery O2 Flow Rate FiO2 04/09/25 17:09 98.4 60 14 134/66 96 Room Air* 0 21 04/09/25 15:40 97.9 79 16 167/80 97 Room Air 0 DX & DISP Disposition: Inpatient Departure Impression: Primary Impression: Chest pain at rest Additional Impressions: Diabetes mellitus, Hypertension Critical Time: 30 minutes Condition: Stable Referrals: GRACIELA GABRIEL DO (PCP) ATTESTATION BY PHYSICIAN I have seen and examined the patient. I reviewed the documentation, medical decision making, and treatment plan as noted by the resident provider above. I agree with the findings and plan of care. Toni Lawson SUNIL MD Apr 09, 2025 17:15 TONI LAWSON DO Apr 09, 2025 18:10
[2025-04-09 17:19] LABS: CREATININE 1.0 mg/dL (0.5-1.0); GLOMERULAR FILTR. RATE CALC 57.0 mL/min (>90); GLUCOSE,RANDOM 188.0 mg/dL (70-105); SODIUM SERUM 135.0 mmol/L (136-145); UREA NITROGEN, BLOOD 18.0 mg/dL (7-18)
[2025-04-09 17:28] LABS: ASPARTATE AMINOTRANSFERASE 11.0 U/L (10-37); CREATINE KINASE, TOTAL 61.0 U/L (21-232); LDL DIRECT 73.0 mg/dL (0-99); TOTAL PROTEIN, SERUM 5.5 g/dL (6.0-8.3)
--- NOTE | 2025-04-09 17:30 | EKG ---
[facility] Test Date: 2025-04-09 Test Time: 15:40:38 Pat Name: BIANCA GROSS Department: ED Room: Gender: F Doll Dresser: [id number] : 1945 Requested By: JULI JEWELL Order Number: [id number] Reading MD: Elise Danielson Measurements Intervals [place] Rate: 77 P: 37 NV: 168 QRS: -45 QRSD: 96 T: 23 QT: 384 QTc: 434 Interpretive Statements Sinus rhythm Atrial premature complex Left anterior fascicular block Low voltage, precordial leads Compared to ECG 03/11/2024 11:25:05 Atrial premature complex(es) now present Low QRS voltage now present ST (T wave) deviation no longer present Electronically Signed On 04-09-2025 20:11:05 CDT by Elise Danielson Please click the below link to view image of tracing.
--- NOTE | 2025-04-09 18:42 | HMCIMG ---
EXAM: CR Chest, 1 View. CLINICAL HISTORY: Chest pain COMPARISON: None provided. FINDINGS: LUNGS: The lungs show no infiltrate or other acute finding. PLEURAL SPACES: No pleural effusion or pneumothorax. MEDIASTINUM: Cardiac size and mediastinal contours within normal limits. BONES: No acute osseous abnormality. IMPRESSION: No acute cardiopulmonary pathology is evident. /[place]
--- NOTE | 2025-04-09 19:35 | NUR ---
PT CARE ASSUMED AT THIS TIME.
--- NOTE | 2025-04-09 19:41 | HMCIMG ---
EXAM: US for Deep Venous Thrombosis, bilateral Lower Extremity. CLINICAL HISTORY: Leg Pain and Swelling TECHNIQUE: Real-time ultrasound scan of the veins of the bilateral lower extremity with color Doppler flow, spectral waveform analysis and compression. COMPARISON: None provided. FINDINGS: DEEP VEINS: The common femoral, superficial femoral, and popliteal veins are echolucent and compressible. There is normal color Doppler flow throughout. The visualized calf veins appear patent. SOFT TISSUES: No popliteal fossa cyst or other abnormalities. IMPRESSION: No deep venous thrombosis evident on bilateral lower extremity examination. /[place]
--- NOTE | 2025-04-09 19:48 | HP ---
[facility] Date of Service: Apr 09, 2025 Time of Service: 19:47 PCP:Antonietta Stewart HISTORY OF PRESENT ILLNESS: This is an 79-year-old female past medical history of gastritis, arthritis, stroke with left-sided weakness, diabetes, hypertension, hyperlipidemia and hypothyroidism who presents to the ED for complaints of chest pain along midsternal,radiates to the left side of her chest and to her back and throat started three days ago with no other associated symptoms. Patient reports she is taking ibuprofen and clonazepam initially afforded relief. Patient reports chest pain has been intermittent and today pain intensity has increased and chest pain has been occurring frequently and patient took meds such as Ibuprofen and Clonazepam prior to coming to the ED however it did not subside so she decided to come to the ER for evaluation. Right chest pain as chest pressure. Son was at bedside during my evaluation. As per son patient smokes 6-8 cigarettes per day denies alcohol and recreational drug use. Patient had a left heart catheterization on 01/26/2019 and as per son everything came out normal. Seen and examined patient in the ER awake alert and coherent. Patient reports she feels much better now, no chest pain at this time. Patient denies palpitation, diaphoresis, nausea vomiting, abdominal pain and shortness of breaths. Latest vital signs: Temperature 98.4, heart rate 57, blood pressure 165/71 saturation 98% on room air. Labs: CBC unremarkable. D-dimer 1905. Sodium 135, glucose 188, total calcium eight, protein 5.5, albumin 2.8, BNP 48, troponin six and six. ECG result revealed sinus rhythm heart rate 77 with atrial premature complex, left anterior fascicular block and low voltage precordial leads. CT chest without contrast pending result at this time. Chest x-ray result is unremarkable. Venous Doppler to bilateral lower extremities result revealed no deep venous thrombosis on bilateral lower extremity. While in the ER CT angio rule out PE and aortic dissection was ordered by ER MD but was not done because the patient has allergy to iodine a CT chest without contrast was ordered instead by the undersigned.A MELIA was also suggested by ER MD to r/o aortic dissection.Will admit patient for further medical management. REVIEW OF SYSTEMS CONSTITUTIONAL: Denies fevers, chills, or night sweats. No unintentional weight loss reported. NEUROLOGICAL: Denies headache, amaurosis fugax, motor weakness, sensory deficit, vertigo/spinning sensation, gait abnormalities, or tremors. ENT: No hearing loss, otalgia, otorrhea, rhinitis, rhinorrhea, hoarseness, or sore throat. CARDIOVASCULAR: Patient complaints of chest pain Denies dyspnea on exertion, orthopnea, paroxysmal nocturnal dyspnea, palpitations, life-threatening arrhythmias, claudication. PULMONARY: Denies any shortness of breath, cough, phlegm/sputum, hemoptysis, pleuritic chest pain. SLEEP: Denies morning headaches, daytime somnolence or napping. Denies difficulty falling asleep, staying asleep, waking from sleep. Denies knowledge of snoring. GASTROINTESTINAL: Denies any type of dysphagia to either liquids or solids. Denies nausea, vomiting, pyrosis, early satiety, abdominal pain, diarrhea, constipation, or changes in stool consistency or caliber. Denies coffee-ground emesis, hematemesis, hematochezia, or melanotic stools. GENITOURINARY: Denies frequency, urgency, nocturia, hematuria or incontinence (Storage/Irritative symptoms.) Low urinary stream, straining to void, urinary intermittency or hesitancy, splitting of the voiding stream, terminal dribbling. ENDOCRINOLOGIC: Denies polyuria, polydipsia, polyphagia or heat/cold intolerances. HEMATOLOGIC: Denies thrombophilia/previous clots, or coagulopathy/bleeding disorders. ONCOLOGIC: Denies personal history of malignancy. DERMATOLOGIC: Denies rashes or pruritus. PSYCHIATRIC: Denies any suicidal or homicidal ideation. Denies hallucinations. PAST MEDICAL HISTORY: [ gastritis, arthritis, stroke with left-sided weakness, diabetes, hypertension, hyperlipidemia and hypothyroidism ] PAST SURGICAL HISTORY: [ Cholecystectomy ] PAST SOCIAL HISTORY: [ Patient lives with . Patient smokes to eight cigarettes per day. Patient denies alcohol and recreational drug use ] FAMILY HISTORY: [Hypertension, diabetes, Chronic obstructive pulmonary disease cardiovascular disease ] Coded Allergies: codeine (Unverified Allergy, Severe, SWOLLEN TONGUE, 01/25/19) canagliflozin (Unverified Allergy, Intermediate, SWOLLEN TONGUE, 01/25/19) naproxen (Unverified Allergy, Intermediate, SWELLING, 01/25/19) tramadol (Unverified Allergy, Intermediate, SWOLLEN TONGUE, 01/25/19) Iodine and Iodide Containing Produc (Unverified Allergy, Unknown, 05/28/17) PHYSICAL EXAM GENERAL APPEARANCE: The patient is awake, alert, and oriented, in no acute cardiopulmonary distress. NEUROLOGICAL: Cranial nerves II-XII grossly intact. Motor is 5/5 in bilateral upper and lower extremities proximal to distal. No sensory deficits. HEENT: Face is symmetric. Pupils are equal and reactive. Extraocular movements are intact. NECK: Supple. No JVD. No thyromegaly. No submental, submandibular, pre- /postauricular, occipital or supraclavicular lymphadenopathy. CHEST: Normal chest expansion. No Telemetry. LUNGS: Absence of any rales, rhonchi or any wheezing. CARDIOVASCULAR: Regular. S1 and S2 normal. No appreciable rubs, murmurs or gallops. ABDOMEN: Soft, nontender, and nondistended. There is no rebound, voluntary guarding, or rigidity. : Deferred. No Smith. EXTREMITIES: Non-edematous and not cyanotic. No clubbing. Good capillary refill. SKIN: No skin breakdown. Vital Sign (Last 24 Hours) 04/09/25 19:01 Temp 98.4 Pulse 55 Resp 10 B/P (MAP) 163/67 Pulse Ox 97 O2 Delivery Room Air* O2 Flow Rate 0 FiO2 21 LABS: Laboratory: Test 04/09/25 17:00 Range/Units White Blood Count 8.3 4.8-10.8 K/uL Red Blood Count 4.21 4.00-5.50 MIL/uL Hemoglobin 12.6 12.0-16.0 g/dL Hematocrit 36.7 36-48 % Mean Corpuscular Volume 87.2 79-99 fL Mean Corpuscular Hemoglobin 29.9 27.0-33.0 pg Mean Corpuscular Hemoglobin Concent 34.3 32.0-36.0 g/dL Red Cell Distribution Width 15.9 H 11.0-15.5 % Platelet Count 258 130-400 K/uL Mean Platelet Volume 10.2 7.5-10.5 fL Immature Granulocyte % (Auto) 0.6 0-1 % Neutrophils (%) (Auto) 68.6 40.0-77.0 % Lymphocytes (%) (Auto) 20.6 L 21.0-51.0 % Monocytes (%) (Auto) 7.6 3.0-13.0 % Eosinophils (%) (Auto) 1.9 0.0-8.0 % Basophils (%) (Auto) 0.7 0.0-5.0 % Neutrophils # (Auto) 5.7 1.8-7.7 K/uL Lymphocytes # (Auto) 1.7 1.0-4.8 K/uL Monocytes # (Auto) 0.6 0.1-1.0 K/uL Eosinophils # (Auto) 0.16 0.00-0.70 K/uL Basophils # (Auto) 0.06 0.00-0.20 K/uL Absolute Immature Granulocyte (auto 0.05 0-1 K/uL Nucleated Red Blood Cells 0.0 0.0-0.19 % D-Dimer Quantitative (PE/DVT) 1905 *H 0-500 ng/mL Sodium Level 135 L 136-145 mmol/L Potassium Level 3.9 3.5-5.1 mmol/L Chloride Level 102 101-111 mmol/L Carbon Dioxide Level 23 21-32 mmol/L Blood Urea Nitrogen 18 7-18 mg/dL Creatinine 1.0 0.5-1.0 mg/dL Glomerular Filtration Rate Calc 57 >90 mL/min Random Glucose 188 H 70-105 mg/dL Hemoglobin A1c 7.6 H 4.0-6.0 % Estimated Average Glucose (eAG) 171 H 70-126 mg/dL Total Calcium 8.1 L 8.5-10.1 mg/dL Total Bilirubin 0.4 0.2-1.0 mg/dL Aspartate Amino Transf (AST/SGOT) 11 10-37 U/L Alanine Aminotransferase (ALT/SGPT) 14 12-78 U/L Alkaline Phosphatase 131 50-136 U/L Total Creatine Kinase 61 21-232 U/L Troponin I High Sensitivity 6 4-50 ng/L B-Type Natriuretic Peptide 48 0-100 pg/mL Total Protein 5.5 L 6.0-8.3 g/dL Albumin 2.8 L 3.5-5.0 g/dL Triglycerides Level 149 30-200 mg/dL Cholesterol Level 140 # <200 mg/dL LDL Cholesterol 73 0-99 mg/dL HDL Cholesterol 45 35-85 mg/dL DIAGNOSTICS / RADIOLOGY: [ ] ASSESSMENT: Chest pain rule out ACS POA Uncontrolled hypertension POA Persistent bradycardia POA Uncontrolled diabetes POA Protein calorie malnutrition POA Nicotine dependence POA History of CVA with residual left-sided weakness POA Hyperlipidemia POA Hypothyroidism POA PLAN: We will admit patient in PCCU We will start on heart healthy and diet Continue home dose aspirin 81 mg, atorvastatin 40 mg, levothyroxine and clonazepam We will start on Protonix 40 mg IV daily for GI prophylaxis We will replace electrolytes as needed per protocol We will start on insulin sliding scale AC & HS with hypoglycemia protocol We will add prn medication for fever,pain,cough , nausea and vomiting We will reconcile home medication once available Counseled on smoking cessation We will request for CT chest without contrast and follow-up result We will request for echocardiogram May have MELIA as per ER recommendation but will defer decision to cardiology Seek Cardiology consultation We will defer VQ scan at this time,patient has no respiratory symptoms We will trend troponin q.6 x3 We will request labs in am Further orders to follow depending on above results Case discussed with attending physician and came up with above treatment and plan of care. ADVANCED CARE PLANNING 1. Which of the following were discussed? Hospice Care - No Therapeutic options - Yes Advance Directives - No Other discussions - 2. Discussed with who? Patient 3. Voluntary nature of this service was explained to the patient? Yes 4. Amount of time spent - _22 min 5. Reviewed by Physician? (if this service was performed by NPP) Yes Patient seen and examined by me. Agree with note by BANK NOTE DESIGNER SEE ADDITIONAL ORDERS PER CHART DISCUSSED WITH NURSING STAFF ADOLFO COFFEYP Apr 09, 2025 19:47
--- NOTE | 2025-04-09 19:56 | NUR ---
FIXING CARPENTER DON DON AT BEDSIDE AT THIS TIME
[2025-04-09] MEDS ORDERED: PoTASSium chl 10% ELIXIR 20MEQ 20 MEQ/15 ML UDCUP PO PRN (20:30)
[2025-04-09] MEDS ORDERED: DEXTROSE 50%-WATER 50 ML DISP.SYRIN IV PRN (20:30)
[2025-04-09] MEDS ORDERED: PoTASSium chloRIDE 20MEQ ER 20 MEQ ERTAB PO PRN (20:30)
[2025-04-09] MEDS ORDERED: GLUCAGON 1MG KIT 1 MG ML IM PRN (20:30)
[2025-04-10] VITALS (8 sets, daily range): BP systolic 99–168; BP diastolic 51–70; PULSE 51–99; RESP 18–20; TEMP 97.5–98.9; O2SAT 96–98
--- NOTE | 2025-04-10 00:36 | NUR ---
REPORT GIVEN TO JENNIFER OBREGON AT THIS TIME
--- NOTE | 2025-04-10 00:40 | NUR ---
OBTAINED PRN MEDICATION FOR BLOOD PRESSURE AT THIS TIME FROM TONI ALLISON.
[2025-04-10 05:47] LABS: IMMATURE GRANULOCYTE ABSOLUTE 0.04 K/uL (0-1); NUCLEATED RED BLOOD CELLS 0.0 % (0.0-0.19); PLATELET COUNT (AUTO) 251 K/uL (130-400); RED BLOOD CELL COUNT(AUTO) 4.57 MIL/uL (4.00-5.50); RED CELL DISTRIBUTION WIDTH 15.7 % (11.0-15.5); WHITE BLOOD COUNT (AUTO) 6.6 K/uL (4.8-10.8)
[2025-04-10 06:09] LABS: ERYTHROCYTE SEDIMENTATION RATE 12 MM/HR (0-30)
[2025-04-10 06:17] LABS: ASPARTATE AMINOTRANSFERASE 13.0 U/L (10-37); CREATINE KINASE, TOTAL 69.0 U/L (21-232); CREATININE 0.8 mg/dL (0.5-1.0); GLOMERULAR FILTR. RATE CALC 74.0 mL/min (>90); GLUCOSE,RANDOM 153.0 mg/dL (70-105); SODIUM SERUM 140.0 mmol/L (136-145); TOTAL PROTEIN, SERUM 5.3 g/dL (6.0-8.3); UREA NITROGEN, BLOOD 14.0 mg/dL (7-18)
[2025-04-10] MEDS: MAGNESIUM 2GM PREMIX 50ML 50 ML IV PRN (07:00)
[2025-04-10] MEDS: LOSARTAN PO SCH (09:00)
[2025-04-10] MEDS: HYDROCHLOROTHIAZIDE PO SCH (09:00)
[2025-04-10] MEDS: [UNRECOGNIZED DRUG - OTHER] PO SCH (09:00)
[2025-04-10] MEDS: ASPIRIN 81MG CHEW TAB PO SCH (09:48)
[2025-04-10] MEDS ORDERED: GABA-529 PO (10:41)
[2025-04-10] MEDS ORDERED: GLIP1TAB6 PO ×2 (10:41)
[2025-04-10] MEDS ORDERED: ALBU18HF7 IH (10:41)
[2025-04-10] MEDS ORDERED: LEVO100C5 PO (10:41)
[2025-04-10] MEDS ORDERED: ESOM40CA66 PO (10:41)
--- NOTE | 2025-04-10 11:32 | NUR ---
DCP: HOME Sw met with pt and her family at bedside. pt sates she lives at home alone, in her [address] apt. Pt has a provider daily 8-1 and daughter Antonietta Guerrero [phone] is provider on weekends. Pt states she requires assistance with her ADLS, ambulation and transportation. Provider services thru [facility]. Pt uses a walker with seat, cane, w/c, scooter, shower chair and bsc. Pt reports she has a male nurse that goes every Wednesday to do vitals, son states it's only temporary. They don't know if its a HH or some other program. Son states family will update nurse when he goes next Wednesday. Pt gets $100 in monthly food stamps. PCP is Ana Mcgovern and uses [facility] or [facility] for rx needs. Dcp is home.
--- NOTE | 2025-04-10 12:28 | CONS ---
Cardiology Consult Note Attending Dye Blender: Dr. Chase Deutsch Primary Dye Blender: Dr. 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 The symptoms began spontaneously and over the ensuing timeframe were constant and progressively worsened. The symptoms would develop multiple times throughout the day, were located on various locations throughout the thoracic cavity, and the pain was described as dull in quality, 6/10 in intensity, and would radiate to the back. The symptoms were last less than 20 minutes, were not exacerbated by anything, and would temporarily resolve after taking ibuprofen. She denied any associated symptoms including headache, dizziness, syncope, palpitations, shortness of breath, PND, orthopnea, abdominal pain, nausea, vomiting, weight gain, lower extremity swelling, diaphoresis, fever, or chills. The patient's progression of symptoms prompted her to seek a higher level of care. Cardiology was consulted for treatment recommendations. PMH: Listed above PSH: Listed above FH: Noncontributory SH: Positive for tobacco abuse. Denies alcohol or illicit drug use. Allergies: Coded Allergies: codeine (Unverified Allergy, Severe, SWOLLEN TONGUE, 01/25/19) canagliflozin (Unverified Allergy, Intermediate, SWOLLEN TONGUE, 01/25/19) naproxen (Unverified Allergy, Intermediate, SWELLING, 01/25/19) tramadol (Unverified Allergy, Intermediate, SWOLLEN TONGUE, 01/25/19) Iodine and Iodide Containing Produc (Unverified Allergy, Unknown, 05/28/17) Review of systems: General: Denies fever or chills HEENT: Denies changes in vision, earache or sore throat Neck: Denies pain or stiffness Cardio: As per the HPI Pulm: Denies SOB, coughing or wheezing GI: Denies abdominal pain, nausea, vomiting, diarrhea, or constipation. MSK: Denies decreased ROM or joint pain. Heme: Denies anemia, easy bruising, or bleeding. Neuro: Denies headache, dizziness, or syncope. Psyche: Denies anxiety, depression, or suicidal ideation. Physical Exam: Vital Signs Date Time Temp Pulse Resp B/P (MAP) Pulse Ox O2 Delivery O2 Flow Rate FiO2 04/10/25 11:00 97.5 99 20 99/51 97 Room Air 04/10/25 01:00 0 21 General: Alert and oriented x 3. NAD HEENT: NC/AT. Oral mucosa is moist. Neck: No masses, JVD, or carotid bruits Lungs: NRD. SCM. B/L CTA. No wheezing, rales or rhonchi. Cardio: Rate @ 77bpm. Normal S1 and S2. +S4. PMI was not displaced. Abdomen: Soft. NT. ND. Normal active bowel sounds x 4 quadrants. Extremities: Diminished throughout Neuro: CN II-XII were grossly intact. No focal deficits. Labs: Laboratory Tests Test 04/09/25 17:00 04/09/25 21:10 04/10/25 05:33 04/10/25 10:36 Range/Units White Blood Count 8.3 6.6 4.8-10.8 K/uL Red Blood Count 4.21 4.57 4.00-5.50 MIL/uL Hemoglobin 12.6 13.7 12.0-16.0 g/dL Hematocrit 36.7 39.6 36-48 % Mean Corpuscular Volume 87.2 86.7 79-99 fL Mean Corpuscular Hemoglobin 29.9 30.0 27.0-33.0 pg Mean Corpuscular Hemoglobin Concent 34.3 34.6 32.0-36.0 g/dL Red Cell Distribution Width 15.9 H 15.7 H 11.0-15.5 % Platelet Count 258 251 130-400 K/uL Mean Platelet Volume 10.2 9.9 7.5-10.5 fL Immature Granulocyte % (Auto) 0.6 0.6 0-1 % Neutrophils (%) (Auto) 68.6 61.0 40.0-77.0 % Lymphocytes (%) (Auto) 20.6 L 28.7 21.0-51.0 % Monocytes (%) (Auto) 7.6 6.4 3.0-13.0 % Eosinophils (%) (Auto) 1.9 2.4 0.0-8.0 % Basophils (%) (Auto) 0.7 0.9 0.0-5.0 % Neutrophils # (Auto) 5.7 4.0 1.8-7.7 K/uL Lymphocytes # (Auto) 1.7 1.9 1.0-4.8 K/uL Monocytes # (Auto) 0.6 0.4 0.1-1.0 K/uL Eosinophils # (Auto) 0.16 0.16 0.00-0.70 K/uL Basophils # (Auto) 0.06 0.06 0.00-0.20 K/uL Absolute Immature Granulocyte (auto 0.05 0.04 0-1 K/uL Nucleated Red Blood Cells 0.0 0.0 0.0-0.19 % D-Dimer Quantitative (PE/DVT) 1905 *H 0-500 ng/mL Sodium Level 135 L 140 136-145 mmol/L Potassium Level 3.9 4.3 3.5-5.1 mmol/L Chloride Level 102 107 101-111 mmol/L Carbon Dioxide Level 23 28 21-32 mmol/L Blood Urea Nitrogen 18 14 7-18 mg/dL Creatinine 1.0 0.8 0.5-1.0 mg/dL Glomerular Filtration Rate Calc 57 74 >90 mL/min Random Glucose 188 H 153 H 70-105 mg/dL Hemoglobin A1c 7.6 H 4.0-6.0 % Estimated Average Glucose (eAG) 171 H 70-126 mg/dL Total Calcium 8.1 L 8.5 8.5-10.1 mg/dL Total Bilirubin 0.4 0.7 # 0.2-1.0 mg/dL Aspartate Amino Transf (AST/SGOT) 11 13 10-37 U/L Alanine Aminotransferase (ALT/SGPT) 14 16 12-78 U/L Alkaline Phosphatase 131 124 50-136 U/L Total Creatine Kinase 61 69 21-232 U/L Troponin I High Sensitivity 6 6 6 7 4-50 ng/L B-Type Natriuretic Peptide 48 0-100 pg/mL Total Protein 5.5 L 5.3 L 6.0-8.3 g/dL Albumin 2.8 L 2.8 L 3.5-5.0 g/dL Triglycerides Level 149 30-200 mg/dL Cholesterol Level 140 # <200 mg/dL LDL Cholesterol 73 0-99 mg/dL HDL Cholesterol 45 35-85 mg/dL Erythrocyte Sedimentation Rate 12 0-30 MM/HR Magnesium Level 1.80 1.80-2.40 mg/dL Thyroid Stimulating Hormone (TSH) 6.25 #H 0.36-3.74 uIU/mL Assessment: -Chest pain -Elevated D dimer, DVT ruled out -Nonobstructive CAD (serial lesions, each with 40% stenosis in the proximal, proximal-mid, and mid LAD, 20% stenosis in the distal LAD, 30% stenosis in the distal LCx, 30% stenosis in the mid OM2, 20% stenosis in the proximal RCA, 30% stenosis in the proximal-mid RCA, 40% stenosis in the mid RCA) identified on LHC done on 01/26/2019 -Low risk abnormal Lexiscan stress test (small size, mild intensity apical ischemia) done on 10/31/2021 -Tobacco abuse -HTN -HLP with statin intolerance, currently on Repatha -DM2 -Hypothyroidism -COPD -Ischemic CVA with residual left sided hemiparesis -Chronic debility (wheelchair bound) Plan: 1. Chest pain -Stable -Cardiac enzymes-HS troponin I: 6>6>6>7 -ECG 04/09/2025: Sinus rhythm with PACs, LAFB, QTc: 434 ms, HR: 77 bpm -2D echo 04/10/2025: LV systolic function is normal. No significant valvular abnormalities noted. No pericardial effusion. -The etiology behind the patient's symptoms is unknown, but thus far ACS has been ruled out via serial cardiac enzymes. -As a result, we do not recommend any further cardiac workup and instead the patient will continue on conservative medical therapy which includes aspirin 81 mg daily. We will stop atorvastatin due to the patient's statin intolerance, for which she is currently on Repatha Q2Wks. -She is not a candidate for BB therapy due to low resting heart rates. We will be siging off of the case. Please have the patient follow up with Cardiology, Dr. Virgilio Wilkins, 1-2 weeks after discharge. Thank you for this interesting consult and allowing us to participate in the care of your patient. This case was discussed with my Supervising Physician, Dr. Chase Deutsch, and the above mentioned plan was formulated and agreed upon. -Consult Note written by Kathryn Groves, MSN, GEOLOGICAL TECHNICIAN, AGACNP-BC KATHRYN GROVES Apr 10, 2025 12:28
--- NOTE | 2025-04-10 12:34 | PN ---
[facility] PROGRESS NOTE Date of Service: Apr 10, 2025 Time of Service: 12:32 SUBJECTIVE: 04/10 PATIENT IS SEEN AND EXAMINED AT BEDSIDE, DISCUSSED WITH THE RN, NO ACUTE EVENTS OVERNIGHT, COMFORTABLY IN BED, ALERT ORIENTED X3, SHE IS EATING LUNCH AT THE TIME MY VISIT, TOLERATING WELL, DENIED CHEST PAIN, SHORTNESS SHORTNESS FOR BREATH, NO NAUSEA, NO VOMITING, NO ABDOMINAL DISCOMFORT. TROPONIN LEVEL X4 NEGATIVE. CARDIOLOGY CONSULTATION REQUESTED, FOLLOW INPUT AND RECOMMENDATION. DOPPLER OF THE LOWER EXTREMITIES NEGATIVE FOR DVT. D-DIMER 1905. CT CHEST PENDING. REVIEW OF SYSTEMS CONSTITUTIONAL: Denies fevers, chills, or night sweats. No unintentional weight loss reported. NEUROLOGICAL: Denies headache, amaurosis fugax, motor weakness, sensory deficit, vertigo/spinning sensation, gait abnormalities, or tremors. ENT: No hearing loss, otalgia, otorrhea, rhinitis, rhinorrhea, hoarseness, or sore throat. CARDIOVASCULAR: Patient complaints of chest pain Denies dyspnea on exertion, orthopnea, paroxysmal nocturnal dyspnea, palpitations, life-threatening arrhythmias, claudication. PULMONARY: Denies any shortness of breath, cough, phlegm/sputum, hemoptysis, pleuritic chest pain. SLEEP: Denies morning headaches, daytime somnolence or napping. Denies difficulty falling asleep, staying asleep, waking from sleep. Denies knowledge of snoring. GASTROINTESTINAL: Denies any type of dysphagia to either liquids or solids. Denies nausea, vomiting, pyrosis, early satiety, abdominal pain, diarrhea, constipation, or changes in stool consistency or caliber. Denies coffee-ground emesis, hematemesis, hematochezia, or melanotic stools. GENITOURINARY: Denies frequency, urgency, nocturia, hematuria or incontinence (Storage/Irritative symptoms.) Low urinary stream, straining to void, urinary intermittency or hesitancy, splitting of the voiding stream, terminal dribbling. ENDOCRINOLOGIC: Denies polyuria, polydipsia, polyphagia or heat/cold intolerances. HEMATOLOGIC: Denies thrombophilia/previous clots, or coagulopathy/bleeding disorders. ONCOLOGIC: Denies personal history of malignancy. DERMATOLOGIC: Denies rashes or pruritus. PSYCHIATRIC: Denies any suicidal or homicidal ideation. Denies hallucinations. PHYSICAL EXAM GENERAL APPEARANCE: The patient is awake, alert, and oriented, in no acute cardiopulmonary distress. NEUROLOGICAL: Cranial nerves II-XII grossly intact. Motor is 5/5 in bilateral upper and lower extremities proximal to distal. No sensory deficits. HEENT: Face is symmetric. Pupils are equal and reactive. Extraocular movements are intact. NECK: Supple. No JVD. No thyromegaly. No submental, submandibular, pre- /postauricular, occipital or supraclavicular lymphadenopathy. CHEST: Normal chest expansion. No Telemetry. LUNGS: Absence of any rales, rhonchi or any wheezing. CARDIOVASCULAR: Regular. S1 and S2 normal. No appreciable rubs, murmurs or gallops. ABDOMEN: Soft, nontender, and nondistended. There is no rebound, voluntary guarding, or rigidity. : Deferred. No Smith. EXTREMITIES: Non-edematous and not cyanotic. No clubbing. Good capillary refill. SKIN: No skin breakdown. Vital Signs (last 8hr) Date Time Temp Pulse Resp B/P (MAP) Pulse Ox O2 Delivery O2 Flow Rate FiO2 04/10/25 11:00 97.5 99 20 99/51 97 Room Air 04/10/25 07:00 97.9 64 18 152/69 97 Room Air LABS: Laboratory: Test 04/10/25 10:36 04/10/25 05:33 04/09/25 17:00 Range/Units Troponin I High Sensitivity 7 4-50 ng/L White Blood Count 6.6 4.8-10.8 K/uL Red Blood Count 4.57 4.00-5.50 MIL/uL Hemoglobin 13.7 12.0-16.0 g/dL Hematocrit 39.6 36-48 % Mean Corpuscular Volume 86.7 79-99 fL Mean Corpuscular Hemoglobin 30.0 27.0-33.0 pg Mean Corpuscular Hemoglobin Concent 34.6 32.0-36.0 g/dL Red Cell Distribution Width 15.7 H 11.0-15.5 % Platelet Count 251 130-400 K/uL Mean Platelet Volume 9.9 7.5-10.5 fL Immature Granulocyte % (Auto) 0.6 0-1 % Neutrophils (%) (Auto) 61.0 40.0-77.0 % Lymphocytes (%) (Auto) 28.7 21.0-51.0 % Monocytes (%) (Auto) 6.4 3.0-13.0 % Eosinophils (%) (Auto) 2.4 0.0-8.0 % Basophils (%) (Auto) 0.9 0.0-5.0 % Neutrophils # (Auto) 4.0 1.8-7.7 K/uL Lymphocytes # (Auto) 1.9 1.0-4.8 K/uL Monocytes # (Auto) 0.4 0.1-1.0 K/uL Eosinophils # (Auto) 0.16 0.00-0.70 K/uL Basophils # (Auto) 0.06 0.00-0.20 K/uL Absolute Immature Granulocyte (auto 0.04 0-1 K/uL Nucleated Red Blood Cells 0.0 0.0-0.19 % Erythrocyte Sedimentation Rate 12 0-30 MM/HR Sodium Level 140 136-145 mmol/L Potassium Level 4.3 3.5-5.1 mmol/L Chloride Level 107 101-111 mmol/L Carbon Dioxide Level 28 21-32 mmol/L Blood Urea Nitrogen 14 7-18 mg/dL Creatinine 0.8 0.5-1.0 mg/dL Glomerular Filtration Rate Calc 74 >90 mL/min Random Glucose 153 H 70-105 mg/dL Total Calcium 8.5 8.5-10.1 mg/dL Magnesium Level 1.80 1.80-2.40 mg/dL Total Bilirubin 0.7 # 0.2-1.0 mg/dL Aspartate Amino Transf (AST/SGOT) 13 10-37 U/L Alanine Aminotransferase (ALT/SGPT) 16 12-78 U/L Alkaline Phosphatase 124 50-136 U/L Total Creatine Kinase 69 21-232 U/L Total Protein 5.3 L 6.0-8.3 g/dL Albumin 2.8 L 3.5-5.0 g/dL Thyroid Stimulating Hormone (TSH) 6.25 #H 0.36-3.74 uIU/mL D-Dimer Quantitative (PE/DVT) 1905 *H 0-500 ng/mL Hemoglobin A1c 7.6 H 4.0-6.0 % Estimated Average Glucose (eAG) 171 H 70-126 mg/dL B-Type Natriuretic Peptide 48 0-100 pg/mL Triglycerides Level 149 30-200 mg/dL Cholesterol Level 140 # <200 mg/dL LDL Cholesterol 73 0-99 mg/dL HDL Cholesterol 45 35-85 mg/dL Current Medications Medications (Trade) Dose Ordered Sig/Lisette Route PRN Reason Start Time Stop Time Status Last Admin Dose Admin Acetaminophen (TYLenol 325MG TAB) 650 mg Q4H PRN PO MILD PAIN (1-3) 04/09/25 20:30 05/09/25 20:29 Acetaminophen (TYLenol 325MG TAB) 650 mg Q6H PRN PO TEMPERATURE GREATER THAN 101.5 04/09/25 20:30 05/09/25 20:29 Aspirin (Aspirin 81mg Chew Tab) 81 mg DAILY PO 04/10/25 09:00 05/10/25 08:59 04/10/25 09:48 81 MG Atorvastatin Calcium (LIPItor 40MG) 40 mg HS PO 04/10/25 21:00 04/10/25 12:25 DC Clonazepam (clonazePAM 0.5 mg) 0.5 mg BID PRN PO ANXIETY/AGITATION 04/10/25 01:30 05/10/25 01:29 Dextrose (D50w) 50 ml AD PRN IV HYPOGLYCEMIA PROTOCOL 04/09/25 20:30 05/09/25 20:29 Glucagon (Glucagon 1mg Kit) 1 mg AD PRN IM HYPOGLYCEMIA PROTOCOL 04/09/25 20:30 05/09/25 20:29 Home Med (Home Medication) DAILY PO 04/10/25 09:00 05/10/25 08:59 Hydralazine HCl (APRESOLine 20MG INJ) 10 mg Q6H PRN IV ADMINISTER FOR SBP > 160 04/10/25 01:00 05/10/25 00:59 04/10/25 02:32 10 MG Levothyroxine Sodium (SYNTHroid 75MCG TAB) 75 mcg ACBKFST PO 04/10/25 07:30 05/10/25 07:29 04/10/25 06:59 75 MCG Magnesium Sulfate 50 ml @ 0 mls/hr PROTOCOL PRN IV OTHER [SEE ORDER COMMENTS] 04/09/25 20:30 05/09/25 20:29 04/10/25 07:00 25 MLS/HR Ondansetron HCl (zoFRAN 4MG INJ) 4 mg Q6H PRN IV NAUSEA/VOMITING 04/09/25 20:30 05/09/25 20:29 Pantoprazole Sodium (PROTonix 40MG INJ) 40 mg DAILY IVP 04/10/25 09:00 05/10/25 08:59 04/10/25 09:48 40 MG Potassium Chloride 100 ml @ 100 mls/hr AD PRN IV POTASSIUM PROTOCOL 04/09/25 20:30 05/09/25 20:29 Potassium Chloride (K-Dur/Klor-Con 20meq) 20 meq AD PRN PO POTASSIUM PROTOCOL 04/09/25 20:30 05/09/25 20:29 Potassium Chloride (KCl 10% Elixir 20meq/15ml) 20 meq AD PRN PO POTASSIUM PROTOCOL 04/09/25 20:30 05/09/25 20:29 DIAGNOSTICS / RADIOLOGY: [ ] ASSESSMENT: Chest pain rule out ACS POA Uncontrolled hypertension POA Persistent bradycardia POA Uncontrolled diabetes POA Protein calorie malnutrition POA Nicotine dependence POA History of CVA with residual left-sided weakness POA Hyperlipidemia POA Hypothyroidism POA PLAN: PATIENT IS SEEN AND EXAMINED AT BEDSIDE, DISCUSSED WITH THE RN, NO ACUTE EVENTS OVERNIGHT, COMFORTABLY IN BED, ALERT ORIENTED X3, SHE IS EATING LUNCH AT THE TIME MY VISIT, TOLERATING WELL, DENIED CHEST PAIN, SHORTNESS SHORTNESS FOR BREATH, NO NAUSEA, NO VOMITING, NO ABDOMINAL DISCOMFORT. TROPONIN LEVEL X4 NEG ATIVE. CARDIOLOGY CONSULTATION REQUESTED, FOLLOW INPUT AND RECOMMENDATION. DOPPLER OF THE LOWER EXTREMITIES NEGATIVE FOR DVT. D-DIMER 1905. CT CHEST PENDING. NEURO: MINIMIZE CENTRAL ACTING MEDICATIONS POSSIBLE. FALL PRECAUTIONS. WELL LIGHTED ROOM THROUGH THE DAY AND MINIMIZE INTERRUPTIONS THROUGH THE NIGHT TO PREVENT ACUTE DELIRIUM. PULMONARY: SUPPLEMENTAL 02 NEEDED BIPAP NECESSARY, FOR RESPIRATORY DISTRESS TITRATE FIO2 TO KEEP SPO2 > OR = 90% DUONEBS AND CPT NEEDED IS HOURLY WHILE AWAKE FOR PULMONARY HYGIENE PRN OUT OF BED TO CHAIR TOLERATED MAINTAIN ASPIRATION PRECAUTIONS AT ALL TIMES CARDIOVASCULAR: FOLLOW HEMODYNAMICS. VITAL SIGNS PER FACILITY PROTOCOL GI & NUTRITION: CONTINUE NUTRITIONAL SUPPORT ASPIRATIONS PRECAUTIONS PROKINETIC AGENTS AND LAXATIVES NEEDED KIDNEYS & ELECTROLYTES: STRICT MONITORING OF INTAKE AND OUTPUT DAILY WEIGHTS AVOID NEPHROTOXIC AGENTS MONITOR ELECTROLYTES AND REPLACE NEEDED GOAL URINE OUTPUT OF 30ML/HR OR 0.5ML/KG/HR MEDICATIONS TO BE DOSED ACCORDING TO RENAL FUNCTION. AVOID CONTRAST IF POSSIBLE ENDOCRINE: MAINTAIN BLOOD GLUCOSE BETWEEN 100-180 AT ALL TIMES. INSULIN SLIDING SCALE FOR BLOOD GLUCOSE MANAGEMENT HYPOGLYCEMIA AND HYPERGLYCEMIA PROTOCOL IN PLACE INFECTIOUS DISEASE: TREND TEMPERATURE, WBC AND PROCALCITONIN LEVEL FOLLOW CULTURES, DEESCALATE ANTIBIOTICS SOON POSSIBLE. PANCULTURE IF NEW ONSET FEVER HEMATOLOGY & COAGULATION: MONITOR H&H. KEEP HGB > 7 TRANSFUSE 1 UNIT OF PRBC FOR HGB < 7 TRANSFUSE 1 PACK OF PLATELETS OF PLATELETS < 20, 000 WATCH FOR ANY SIGNS AND SYMPTOMS OF BLEEDING SKIN: PRESSURE ULCER PREVENTION PER FACILITY PROTOCOL SPECIALTY MATTRESS NEEDED ORTHO/REHAB CONTINUE PT/OT PRN: MEDICATIONS TYLENOL 650 MG PO EVERY 4 HRS FOR FEVER ZOFRAN 4 MG IV EVERY 6 HRS FOR N/V HYDRALAZINE 5 MG IV EVERY 4 HRS SYSTOLIC PRESSURE > 160 BOWEL REGIMENT: LACTULOSE 20 GM PO BID PRN CONSTIPATION SUPPORTIVE MEASURES: CONTINUE GI AND DVT PROPHYLAXIS DISPOSITION: PENDING IMPROVEMENT IN CLINICAL CONDITION ALL QUESTIONS ANSWERED TIME SPENT: > 35 MIN MARTÍN TREVINO MD Apr 10, 2025 12:34
--- NOTE | 2025-04-10 21:21 | HMCIMG ---
EXAM: Nuclear VQ scan. HISTORY: Elevated D-dimer COMPARISON: Prior imaging TECHNIQUE: Following the inhalation of 6.62 mCi of Xenon-133, followed by the intravenous administration of 4.5 mCi of Tc99m MAA, perfusion images of the lungs were obtained in eight standard projections. The ventilation images were obtained posteriorly. FINDINGS: No wedge shaped segmental defects identified. No VQ mismatch. Posterior single breath ventilatory images demonstrate normal xenon entry. Equilibrium images are unchanged. Washout does not demonstrate any focal retention. IMPRESSION: Low probability for PE /[place]
--- NOTE | 2025-04-10 22:55 | HMCIMG ---
EXAM: COMPUTED TOMOGRAPHY OF THE CHEST WITHOUT INTRAVENOUS CONTRAST Technique: Noncontrast helical computed tomography of the chest was performed from the thoracic inlet through the adrenal glands with axial images and multiplanar coronal and sagittal reformations. Image quality is diagnostic. Radiation dose reduction techniques were applied using the [id number]-[id number]-achievable principle, including automatic exposure control and patient size???adapted parameters. This non???electrocardiographically gated study is not optimized for coronary lumen evaluation or functional cardiac assessment. Clinical Information: Chest pain. Comparison: Chest radiograph dated April 09, 2025 at 17:36 Eastern Daylight Time. Findings: A few linear atelectatic bands are present in the inferior lingular segment of the left upper lobe. No focal air-space consolidation is identified. No pleural effusion is identified. No pneumothorax is identified. Tiny nodules are seen in the right lower lobe medially 1 to 2 mm The central airways are patent without endobronchial lesion. No thoracic lymphadenopathy is identified by size criteria. Cardiac size is within expected limits for noncontrast technique. Moderate to severe calcified atherosclerosis involves the thoracic aorta and the coronary arteries. Calcification of the aortic valve is present. No pericardial effusion is identified. Visualized upper abdomen demonstrates surgical clips compatible with prior cholecystectomy. Mild degenerative changes are present in the thoracic spine. No acute osseous abnormality is identified. Impression: * Mild nodularity within the right lower lobe which is nonspecific * Linear atelectasis in the inferior lingular segment of the left upper lobe. * Moderate to severe calcified atherosclerosis of the thoracic aorta and coronary arteries, and calcification of the aortic valve /[place]
--- NOTE | 2025-04-10 23:50 | HMCSR ---
APPROVED REPORT EXAM: Two-dimensional and M-mode echocardiogram with Doppler and color Doppler. INDICATION ICD: Chest pain/PE/aortic dissection 2D Dimensions RVDd3.4 cmLVEF(%)35.8 (>50%)LVED Vol(simp.)79.0 mL IVSd0.8 (0.7-1.1cm)FS(%)17 %LVES Vol(simp.)32.0 mL LVDd4.1 (3.8-5.6cm)LA (2D)3.5 (1.6-4.0cm)LVEF(%, simp.)59 % PWd0.9 (0.7-1.1cm)Ao Root(2D)2.6 (2.0-3.7cm)LA ESV INDEX (BP)21.92 mL/m2 LVDs3.4 (2.5-4.0cm)LVOT diam2.1 (1.8-2.4cm) IVC diam1.7 cm Deformation Strain Apical 4-19.1 % Apical 2-20.0 % Apical 3-20.3 % Global Strain-19.8 % M-Mode Dimensions EPSS0.5 cm LA (MM)4.4 (1.6-4.0cm) Ao Root(MM)2.9 (2.0-3.7cm) Aortic Valve AoV Vmax1.5 m/Juan M Peak GR8.6 mmHgLVOT Vmax0.9 m/s AoV VTI0.4 mAo Mean GR4.7 mmHgLVOT VTI0.27 m ANA (VMAX)2.23 cm2AVA (VTI) 2.6 cm2 Mitral Valve MV E Vmax80.9 cm/sDECEL [id number] ms MV A Vmax82.4 cm/sP 1/2 T75 ms E/A ratio1.0MVA (PHT)2.9 cm2 TDI E/E' Qvpfge42.2E/E' Zihvrfa01.8 Medial E' Peak V6.14 cm/sLateral E' Peak V5.87 cm/s Pulmonary Valve PV Vmax1.1 m/sPV VTI0.28 mPV Mean GR3.2 mmHg PV Peak GR5.0 mmHg Left Ventricle The left ventricle is normal size. No regional wall motion abnormalities noted. Mild concentric left ventricular hypertrophy. Sigmoid shaped septum is noted. Left ventricular systolic function is normal , estimated LVEF 55 to 60%. Stage I diastolic dysfunction. Right Ventricle The right ventricle is normal size. The right ventricular systolic function is normal. Atria The left atrium size is normal. The right atrium size is normal. Aortic Valve Aortic valve is trileaflet. The leaflets are mildly thickened and calcified. Trace aortic regurgitati on. There is no aortic valvular stenosis. Mitral Valve The mitral valve is normal in structure. Trace mitral regurgitation. There is no mitral valve stenosi s. Tricuspid Valve The tricuspid valve is normal in structure. Trace tricuspid regurgitation. RVSP is normal. Pulmonic Valve Pulmonic valve is not well visualized. Great Vessels The aortic root is normal in size. The IVC is normal in size and collapses >50% with inspiration. Pericardium There is no pericardial effusion. Conclusion Mild concentric left ventricular hypertrophy. Sigmoid shaped septum is noted. No regional wall motion abnormalities noted. Left ventricular systolic function is normal, estimated LVEF 55 to 60%. Stage I diastolic dysfunction. Trace aortic regurgitation. Trace mitral regurgitation. Trace tricuspid regurgitation. PASP is normal. There is no pericardial effusion.
[2025-04-11 01:00] VITALS: BP 114/44; PULSE 63; RESP 18; TEMP 98
[2025-04-11 04:00] VITALS: BP 127/59; PULSE 58; RESP 18; TEMP 98
[2025-04-11 04:21] LABS: NUCLEATED RED BLOOD CELLS 0.0 % (0.0-0.19); PLATELET COUNT (AUTO) 235.0 K/uL (130-400); RED BLOOD CELL COUNT(AUTO) 4.26 MIL/uL (4.00-5.50); RED CELL DISTRIBUTION WIDTH 15.9 % (11.0-15.5); WHITE BLOOD COUNT (AUTO) 6.6 K/uL (4.8-10.8)
[2025-04-11 04:40] LABS: ASPARTATE AMINOTRANSFERASE 13.0 U/L (10-37); CREATININE 0.9 mg/dL (0.5-1.0); GLOMERULAR FILTR. RATE CALC 65.0 mL/min (>90); GLUCOSE,RANDOM 149.0 mg/dL (70-105); SODIUM SERUM 140.0 mmol/L (136-145); TOTAL PROTEIN, SERUM 5.3 g/dL (6.0-8.3); UREA NITROGEN, BLOOD 14.0 mg/dL (7-18)
[2025-04-11 07:00] VITALS: BP 152/70; PULSE 55; RESP 18; TEMP 97.8
[2025-04-11] MEDS: amLODIPine 5 MG TAB ONE (08:59)
[2025-04-11] MEDS: amLODIPine 5 MG TAB PO SCH (09:00)
[2025-04-11 11:00] VITALS: BP 138/61; PULSE 60; RESP 20; TEMP 97.8
[2025-04-11 11:06] VITALS: O2SAT 98
[2025-04-11] MEDS ORDERED: ASPI-1443 PO (13:08)
--- NOTE | 2025-04-11 13:08 | DS ---
Discharge Summary Hospital Course Summary: DATE OF SERVICE 04/11/2025 PATIENT ADMITTED TO HOSPITAL APRIL 09, 2025 WITH THE FOLLOWING HISTORY OF THE PRESENT ILLNESS This is an 79-year-old female past medical history of gastritis, arthritis, stroke with left-sided weakness, diabetes, hypertension, hyperlipidemia and hypothyroidism who presents to the ED for complaints of chest pain along midsternal,radiates to the left side of her chest and to her back and throat started three days ago with no other associated symptoms. Patient reports she is taking ibuprofen and clonazepam initially afforded relief. Patient reports chest pain has been intermittent and today pain intensity has increased and chest pain has been occurring frequently and patient took meds such as Ibuprofen and Clonazepam prior to coming to the ED however it did not subside so she decided to come to the ER for evaluation. Right chest pain as chest pressure. Son was at bedside during my evaluation. As per son patient smokes 6-8 cigarettes per day denies alcohol and recreational drug use. Patient had a left heart catheterization on 01/26/2019 and as per son everything came out normal. Seen and examined patient in the ER awake alert and coherent. Patient reports she feels much better now, no chest pain at this time. Patient denies palpitation, diaphoresis, nausea vomiting, abdominal pain and shortness of breaths. Latest vital signs: Temperature 98.4, heart rate 57, blood pressure 165/71 saturation 98% on room air. Labs: CBC unremarkable. D-dimer 1905. Sodium 135, glucose 188, total calcium eight, protein 5.5, albumin 2.8, BNP 48, troponin six and six. ECG result revealed sinus rhythm heart rate 77 with atrial premature complex, left anterior fascicular block and low voltage precordial leads. CT chest without contrast pending result at this time. Chest x-ray result is unremarkable. Venous Doppler to bilateral lower extremities result revealed no deep venous thrombosis on bilateral lower extremity. While in the ER CT angio rule out PE and aortic dissection was ordered by ER MD but was not done because the patient has allergy to iodine a CT chest without contrast was ordered instead by the undersigned.A MELIA was also suggested by ER MD to r/o aortic dissection.Will admit patient for further medical management. HOSPITAL COURSE 04/10 PATIENT IS SEEN AND EXAMINED AT BEDSIDE, DISCUSSED WITH THE RN, NO ACUTE EVENTS OVERNIGHT, COMFORTABLY IN BED, ALERT ORIENTED X3, SHE IS EATING LUNCH AT THE TIME MY VISIT, TOLERATING WELL, DENIED CHEST PAIN, SHORTNESS SHORTNESS FOR BREATH, NO NAUSEA, NO VOMITING, NO ABDOMINAL DISCOMFORT. TROPONIN LEVEL X4 NEGATIVE. CARDIOLOGY CONSULTATION REQUESTED, FOLLOW INPUT AND RECOMMENDATION. DOPPLER OF THE LOWER EXTREMITIES NEGATIVE FOR DVT. D-DIMER 1904. CT CHEST PENDING. 04/11 CT OF THE CHEST MILD NODULARITY WITHIN THE RIGHT LOWER LOBE WHICH IS NONSPECIFIC, LINEAR ATELECTASIS INFERIOR LINGULAR SEGMENT LEFT UPPER POLE, MODERATE TO SEVERE CALCIFIED ATHEROSCLEROSIS THORACIC AORTA AND CORONARY ARTERIES, AND CALCIFICATION OF AORTIC VALVE. V/Q SCAN NO EVIDENCE OF PE ECHOCARDIOGRAM REPORTED FOLLOWS Mild concentric left ventricular hypertrophy. Sigmoid shaped septum is noted. No regional wall motion abnormalities noted. Left ventricular systolic function is normal, estimated LVEF 55 to 60%. Stage I diastolic dysfunction. Trace aortic regurgitation. Trace mitral regurgitation. Trace tricuspid regurgitation. PASP is normal. There is no pericardial effusion. PATIENT EVALUATED BY COREMAKING SUPERVISOR, RECOMMENDATIONS FOLLOWS Plan: 1. Chest pain -Stable -Cardiac enzymes-HS troponin I: 6>6>6>7 -ECG 04/09/2025: Sinus rhythm with PACs, LAFB, QTc: 434 ms, HR: 77 bpm -2D echo 04/10/2025: LV systolic function is normal. No significant valvular abnormalities noted. No pericardial effusion. -The etiology behind the patient's symptoms is unknown, but thus far ACS has been ruled out via serial cardiac enzymes. -As a result, we do not recommend any further cardiac workup and instead the patient will continue on conservative medical therapy which includes aspirin 81 mg daily. We will stop atorvastatin due to the patient's statin intolerance, for which she is currently on Repatha Q2Wks. -She is not a candidate for BB therapy due to low resting heart rates. It Instructor(s): CARDIOLOGY Assessment/Plan: FINAL DIAGNOSIS Chest pain ruled out ACS POA Uncontrolled hypertension POA Persistent bradycardia POA Uncontrolled diabetes POA Protein calorie malnutrition POA Nicotine dependence POA History of CVA with residual left-sided weakness POA Hyperlipidemia POA Hypothyroidism POA Discharge Instructions: PATIENT TO BE DISCHARGED HOME TODAY, TO FOLLOW WITH PCP AN OUTPATIENT. RETURN TO HOSPITAL IF CONDITION CHANGES. BOTH PATIENT AND AGREED AND U NDERSTOOD THE INFORMATION PROVIDED. Home Medications: Reported Medications Albuterol Sulfate (Ventolin Hfa) 90 Mcg Hfa.aer.ad, 2 PUFF IH Q6HPRN PRN for wheezing for 30 Days, #18 GM 0 Refills 04/10/25 Gabapentin (Gabapentin) 100 Mg Capsule, 1 CAP PO BID for 30 Days, #90 CAP 0 Refills 04/10/25 Levothyroxine Sodium (Levothyroxine) 100 Mcg Capsule, 1 CAP PO DAILY for 30 Days, #30 CAP 0 Refills 04/10/25 Esomeprazole Magnesium (Esomeprazole Magnesium) 40 Mg Capsule.dr, 1 CAP PO DAILY for 30 Days, #30 CAP 0 Refills 04/10/25 Glipizide/Metformin HCl (Glipizide-Metformin 5-500 mg) 5 Mg-500 Mg Tablet, 1.5 TAB PO DAILY for 30 Days, #60 TAB 0 Refills 04/10/25 Glipizide/Metformin HCl (Glipizide-Metformin 5-500 mg) 5 Mg-500 Mg Tablet, 0.5 TAB PO DAILYDINNER for 30 Days, #60 TAB 0 Refills 04/10/25 Clonazepam (Clonazepam) 0.5 Mg Tablet, 0.5 MG PO BID PRN for ANXIETY/AGITATION, TAB 03/11/24 Losartan Potassium (Losartan Potassium) 100 Mg Tablet, 100 MG PO DAILY, TAB 03/11/24 Amlodipine Besylate (Amlodipine Besylate) 5 Mg Tablet, 5 MG PO AM, TAB 03/11/24 Ibuprofen (Ibuprofen) 800 Mg Tablet, 800 MG PO Q8H PRN for PAIN LEVEL 1 TO 5, TAB 01/24/19 Discontinued Reported Medications Pantoprazole Sodium (Pantoprazole Sodium) 40 Mg Tablet.dr, 40 MG PO DAILY, TAB 03/11/24 Semaglutide (Rybelsus) 3 Mg Tablet, 3 MG PO AM, TAB 03/11/24 Ibuprofen (Ibuprofen) 600 Mg Tablet, 600 MG PO TIDP PRN for PAIN, TAB 03/11/24 Levalbuterol HCl (Levalbuterol HCl) 0.31 Mg/3 Ml Vial.neb, 45 MCG IH Q6HPRN PRN for SHORTNESS OF BREATH, INH 01/24/19 Omeprazole (Omeprazole) 40 Mg Capsule.dr, 40 MG PO DAILY, CAP 01/24/19 Levothyroxine Sodium (Levothyroxine Sodium) 75 Mcg Tablet, 75 MCG PO ACBKFST, TAB 01/24/19 Glipizide/Metformin HCl (Glipizide-Metformin 5-500 mg) 1 Each Tablet, 1 EACH PO BID, TAB 01/24/19 Losartan/Hydrochlorothiazide (Losartan-Hctz 100-25 mg Tab) 1 Each Tablet, 1 EACH PO DAILY, TAB 01/24/19 Rosuvastatin Calcium (Rosuvastatin Calcium) 20 Mg Tablet, 20 MG PO DAILY, TAB 01/24/19 Discontinued Scripts Aspirin (ASPIRIN 81MG CHEW TAB) 81 Mg Tab.chew, 81 MG PO DAILY for 30 Days, #30 TAB.CHEW Prov:SHAWN DOLL MD 01/26/19 Time spent arranging discharge: 31-60 minutes MARTÍN TREVINO MD Apr 11, 2025 13:07
== END 2025-04-11 12:30 | disposition home or self-care (01) ==
LOC: EDH 15:39 → UNDOADMOB 20:26 → EDHIP 20:26 → INTOOBSV 20:26 → 2AH 04-10 01:00 → EDHIP 04-10 01:00 → 2AH 04-11 08:30
PROVIDERS: ADMIT Internal Medicine; ATTEND Internal Medicine
DX: R07.89 Other chest pain (principal); R00.1 Bradycardia, unspecified; E11.65 Type 2 diabetes mellitus with hyperglycemia; I10 Essential (primary) hypertension; I25.10 Atherosclerotic heart disease of native coronary artery without angina pectoris; E78.00 Pure hypercholesterolemia, unspecified; E03.9 Hypothyroidism, unspecified; F41.9 Anxiety disorder, unspecified; K29.70 Gastritis, unspecified, without bleeding; M19.90 Unspecified osteoarthritis, unspecified site; M54.9 Dorsalgia, unspecified; F17.210 Nicotine dependence, cigarettes, uncomplicated; R60.0 Localized edema; Z99.3 Dependence on wheelchair; Z95.5 Presence of coronary angioplasty implant and graft; Z79.899 Other long term (current) drug therapy; Z98.890 Other specified postprocedural states
CPT/HCPCS: 83036; 82550 ×2; 84484 ×4; 80061; 80053 ×3; 83880; 85025 ×2; 85378; 36415 ×3; 71045; 71250; 93970; 99291; 93005; 96365; 96375; 84443; 83735 ×2; 85651; 78582; 93306; 93356; 96376; 85027; J3475; J0360; J2470 ×2; A9540; A9558; G0378 ×4